=== PATIENT | male | born 1950 | race Caucasian/White ===

== ENCOUNTER 2019-03-04 02:03 | Inpatient (IN) ==
[2019-03-04] MEDS ORDERED: ENOXAPARIN 100 MG/ML SYRINGE SUBCUT STA (03:54)
[2019-03-04] MEDS ORDERED: MORPHINE 4 MG/1 ML VIAL IV PRN (04:32)
[2019-03-04] MEDS ORDERED: diphenhydrAMINE CAP 25 MG CAPSULE PO PRN (04:32)
[2019-03-04] MEDS ORDERED: ACETAMINOPHEN 325 MG TABLET PO PRN (04:32)
[2019-03-04] MEDS ORDERED: guaiFENesin/DM ER 600-30 MG TABLET PO PRN (04:32)
[2019-03-04] MEDS ORDERED: NICOTINE 21 MG/24 HR PATCH TRANSDERM PRN (04:32)
[2019-03-04] MEDS ORDERED: PROMETHAZINE 25 MG/1 ML VIAL IM PRN (04:32)
[2019-03-04] MEDS ORDERED: BISACODYL 5 MG TABLET PO PRN (04:32)
[2019-03-04 06:03] LABS: Risk Ratio 4.63; Thyroid Stimulating Hormone 1.61 uIU/ml (0.358-3.74); VLDL CHOLESTEROL 88.6 MG/DL
[2019-03-04] MEDS ORDERED: POTASSIUM CHLORIDE RIDER 10 MEQ in PREMIX 1 EACH IV PRN (09:26)
[2019-03-04] MEDS ORDERED: MAGNESIUM SULF RIDER 2 GM in PREMIX 1 EACH IV PRN (09:26)
[2019-03-04] MEDS: PANTOPRAZOLE 40 MG TABLET PO SCH (10:03)
[2019-03-04] MEDS: SODIUM CHLORIDE 0.9% 1,000 ML IV SCH ×2 (10:03→17:13)
[2019-03-04 10:29] LABS: Basophils % 0.4 % (0.0-0.8); Eosinophils # 0.2 10*3/uL (0.0-0.87); Eosinophils % 3.3 % (0.00-10.9); Hematocrit 42.7 VOL% (42.0-52.0); Hemoglobin 14.2 GM/DL (14.0-18.0); Immature Granulocytes % 0.6 %; Immature Granulocytes Absolute 0.03 #; Lymphocytes # 2.2 10*3/uL (1.4-4.0); Lymphocytes % 45.5 % (21.2-54.2); Mean Corpuscular HGB Conc 33.3 GM/DL (32-36); Mean Corpuscular Volume 96.4 FL (87-102); Monocytes % 5.3 % (1.7-12.7); Neutrophils % 44.9 % (38.7-73.9); Red Blood Count 4.43 MC/CUMM (3.8-5.5); Red Cell Distribution Width 12.4 % (9.3-17.3); White Blood Count 4.9 T/CUMM (4-12)
[2019-03-04 10:30] LABS: Osmolality,Calculated 288.3 MOS/KG (273-304)
[2019-03-04 10:40] LABS: Platelet Count 76 T/CUMM (130-400)
[2019-03-04 10:47] LABS: Platelet Estimate Decreased
[2019-03-04 10:48] LABS: Microcytosis Slight; Tear Drop Cells Slight
[2019-03-04] MEDS ORDERED: diphenhydrAMINE CAP 25 MG CAPSULE PO ONE (12:00)
[2019-03-04] MEDS ORDERED: DIAZEPAM 5 MG TABLET PO ONE (12:00)
[2019-03-04] MEDS ORDERED: LIDOCAINE 1% 20 ML VIAL ONE (12:24)
[2019-03-04] MEDS ORDERED: fentaNYL 100 MCG/2 ML VIAL ONE (12:24)
[2019-03-04] MEDS ORDERED: MIDAZOLAM 2 MG/2 ML VIAL ONE (12:24)
[2019-03-04] MEDS ORDERED: ASPIRIN 325 MG TABLET ONE (12:42)
[2019-03-04] MEDS ORDERED: ENOXAPARIN 30 MG/0.3 ML SYRINGE ONE (13:05)
[2019-03-04] MEDS ORDERED: TIROFIBAN 5,000 MCG/100 ML PREMIX IV ONE (13:07)
[2019-03-04] MEDS ORDERED: TIROFIBAN 5,000 MCG/100 ML PREMIX IV SCH ×2 (13:15)
[2019-03-04] MEDS ORDERED: TICAGRELOR 90 MG TABLET ONE (13:23)
[2019-03-04] MEDS ORDERED: GLUCAGON 1 MG VIAL IM PRN (13:34)
[2019-03-04] MEDS ORDERED: DEXTROSE 50% 25 GM/50 ML VIAL IV PRN (13:34)
[2019-03-04] MEDS ORDERED: CETIRIZINE 10 MG TABLET PO PRN (13:38)
[2019-03-04] MEDS ORDERED: NITROGLYCERIN SL 0.4 MG TABLET SL PRN (13:38)
[2019-03-04] MEDS: INSULIN REGULAR 100 UNIT/ML SUBCUT SCH ×2 (15:58→21:43)
[2019-03-04] MEDS: MEMANTINE 10 MG TABLET PO SCH (20:59)
[2019-03-04] MEDS: traZODone 50 MG TABLET PO SCH (20:59)
[2019-03-04] MEDS ORDERED: TAMSULOSIN 0.4 MG CAPSULE PO SCH (21:00)
[2019-03-04] MEDS ORDERED: INSULIN LISPRO 100 UNIT/ML SUBCUT SCH (21:00)
[2019-03-04] MEDS: PREGABALIN 75 MG CAPSULE PO SCH (21:00)
[2019-03-04] MEDS: TICAGRELOR 90 MG TABLET PO SCH (21:00)
[2019-03-04] MEDS: PANTOPRAZOLE 20 MG TABLET PO SCH (21:00)
[2019-03-05] MEDS: SODIUM CHLORIDE 0.9% 1,000 ML IV SCH ×3 (03:34→18:38)
[2019-03-05 03:37] LABS: Basophils % 0.3 % (0.0-0.8); Eosinophils # 0.2 10*3/uL (0.0-0.87); Eosinophils % 3.8 % (0.00-10.9); Hematocrit 41.5 VOL% (42.0-52.0); Immature Granulocytes % 0.3 %; Immature Granulocytes Absolute 0.01 #; Lymphocytes # 1.4 10*3/uL (1.4-4.0); Lymphocytes % 35.6 % (21.2-54.2); Mean Corpuscular HGB Conc 33.7 GM/DL (32-36); Mean Corpuscular Volume 94.5 FL (87-102); Mean Platelet Volume 11.8 FL (9.6-12.0); Monocytes % 5.8 % (1.7-12.7); Neutrophils % 54.2 % (38.7-73.9); Red Blood Count 4.39 MC/CUMM (3.8-5.5); Red Cell Distribution Width 11.9 % (9.3-17.3)
[2019-03-05 03:40] LABS: Platelet Count 71 T/CUMM (130-400)
[2019-03-05 04:02] LABS: Calcium 8.5 MG/DL (8.5-10.1); Osmolality,Calculated 293.4 MOS/KG (273-304)
[2019-03-05 04:18] LABS: Platelet Estimate Decreased
[2019-03-05] MEDS: LOSARTAN 50 MG TABLET PO SCH (08:57)
[2019-03-05] MEDS: PREGABALIN 75 MG CAPSULE PO SCH ×2 (08:57→21:39)
[2019-03-05] MEDS: TICAGRELOR 90 MG TABLET PO SCH ×2 (08:58→21:38)
[2019-03-05] MEDS: PANTOPRAZOLE 20 MG TABLET PO SCH ×2 (08:58→21:39)
[2019-03-05] MEDS: ASPIRIN EC 81 MG TABLET PO SCH (08:58)
[2019-03-05] MEDS: CYANOCOBALAMIN 500 MCG TABLET PO SCH (08:58)
[2019-03-05] MEDS: ATORVASTATIN 40 MG TABLET PO SCH (08:58)
[2019-03-05] MEDS: FERROUS SULFATE 325 MG TABLET PO SCH (08:58)
[2019-03-05] MEDS: SERTRALINE 100 MG TABLET PO SCH (08:59)
[2019-03-05] MEDS: ATENOLOL 25 MG TABLET PO SCH (08:59)
[2019-03-05] MEDS: INSULIN REGULAR 100 UNIT/ML SUBCUT SCH ×4 (08:59→21:38)
[2019-03-05] MEDS: OMEGA 3 ACID ETHYL ESTERS 1 GM CAPSULE PO SCH (08:59)
[2019-03-05] MEDS: MEMANTINE 10 MG TABLET PO SCH ×2 (08:59→21:39)
[2019-03-05] MEDS ORDERED: INSULIN LISPRO 100 UNIT/ML SUBCUT SCH (09:00)
[2019-03-05] MEDS ORDERED: FUROSEMIDE 20 MG TABLET PO SCH (09:00)
[2019-03-05] MEDS: PANTOPRAZOLE 40 MG TABLET PO SCH (09:33)
[2019-03-05] MEDS ORDERED: LOPERAMIDE 2 MG CAPSULE PO ONE (11:10)
[2019-03-05] MEDS ORDERED: LOPERAMIDE 2 MG CAPSULE PO PRN (11:10)
[2019-03-05] MEDS: traZODone 50 MG TABLET PO SCH (21:38)
[2019-03-05] MEDS: INSULIN GLARGINE 100 UNIT/ML SUBCUT SCH (21:39)
[2019-03-06] MEDS: SODIUM CHLORIDE 0.9% 1,000 ML IV SCH ×3 (05:47→18:54)
[2019-03-06] MEDS: INSULIN REGULAR 100 UNIT/ML SUBCUT SCH ×4 (09:00→21:45)
[2019-03-06] MEDS: OMEGA 3 ACID ETHYL ESTERS 1 GM CAPSULE PO SCH (09:01)
[2019-03-06] MEDS: ATENOLOL 25 MG TABLET PO SCH (09:01)
[2019-03-06] MEDS: CYANOCOBALAMIN 500 MCG TABLET PO SCH (09:01)
[2019-03-06] MEDS: FERROUS SULFATE 325 MG TABLET PO SCH (09:01)
[2019-03-06] MEDS: TICAGRELOR 90 MG TABLET PO SCH ×2 (09:01→21:25)
[2019-03-06] MEDS: LOSARTAN 50 MG TABLET PO SCH (09:01)
[2019-03-06] MEDS: MEMANTINE 10 MG TABLET PO SCH ×2 (09:01→21:26)
[2019-03-06] MEDS: PANTOPRAZOLE 20 MG TABLET PO SCH ×2 (09:02→21:27)
[2019-03-06] MEDS: ASPIRIN EC 81 MG TABLET PO SCH (09:02)
[2019-03-06] MEDS: SERTRALINE 100 MG TABLET PO SCH (09:02)
[2019-03-06] MEDS: PANTOPRAZOLE 40 MG TABLET PO SCH (09:02)
[2019-03-06] MEDS: ATORVASTATIN 40 MG TABLET PO SCH (09:02)
[2019-03-06] MEDS: PREGABALIN 75 MG CAPSULE PO SCH ×2 (09:02→21:26)
[2019-03-06] MEDS: amLODIPine 5 MG TABLET PO SCH (12:16)
[2019-03-06] MEDS: INSULIN GLARGINE 100 UNIT/ML SUBCUT SCH ×2 (13:52→21:26)
[2019-03-06] MEDS: INSULIN LISPRO 100 UNIT/ML SUBCUT SCH ×2 (15:56→21:25)
[2019-03-06] MEDS: traZODone 50 MG TABLET PO SCH (21:25)
[2019-03-07 07:14] LABS: Basophils % 0.5 % (0.0-0.8); Eosinophils # 0.2 10*3/uL (0.0-0.87); Eosinophils % 3.7 % (0.00-10.9); Hemoglobin 13.9 GM/DL (14.0-18.0); Immature Granulocytes % 0.2 %; Immature Granulocytes Absolute 0.01 #; Lymphocytes # 1.9 10*3/uL (1.4-4.0); Lymphocytes % 43.4 % (21.2-54.2); Mean Corpuscular HGB Conc 33.9 GM/DL (32-36); Mean Corpuscular Volume 94.7 FL (87-102); Mean Platelet Volume 11.6 FL (9.6-12.0); Monocytes % 5.9 % (1.7-12.7); Neutrophils % 46.3 % (38.7-73.9); Red Blood Count 4.33 MC/CUMM (3.8-5.5); Red Cell Distribution Width 11.9 % (9.3-17.3); White Blood Count 4.4 T/CUMM (4-12)
[2019-03-07 07:15] LABS: Platelet Count 72 T/CUMM (130-400)
[2019-03-07 07:24] LABS: Calcium 9.1 MG/DL (8.5-10.1); Osmolality,Calculated 294.8 MOS/KG (273-304)
[2019-03-07 07:45] LABS: Hypochromasia Slight; Platelet Estimate Decreased
[2019-03-07 07:46] LABS: Microcytosis Slight
[2019-03-07] MEDS: INSULIN REGULAR 100 UNIT/ML SUBCUT SCH ×4 (08:33→20:52)
[2019-03-07] MEDS: TICAGRELOR 90 MG TABLET PO SCH ×2 (08:34→20:51)
[2019-03-07] MEDS: OMEGA 3 ACID ETHYL ESTERS 1 GM CAPSULE PO SCH (08:34)
[2019-03-07] MEDS: ATORVASTATIN 40 MG TABLET PO SCH (08:34)
[2019-03-07] MEDS: MEMANTINE 10 MG TABLET PO SCH ×2 (08:34→20:54)
[2019-03-07] MEDS: ATENOLOL 25 MG TABLET PO SCH (08:35)
[2019-03-07] MEDS: CYANOCOBALAMIN 500 MCG TABLET PO SCH (08:35)
[2019-03-07] MEDS: SERTRALINE 100 MG TABLET PO SCH (08:35)
[2019-03-07] MEDS: PANTOPRAZOLE 20 MG TABLET PO SCH ×2 (08:36→20:54)
[2019-03-07] MEDS: FERROUS SULFATE 325 MG TABLET PO SCH (08:36)
[2019-03-07] MEDS: PANTOPRAZOLE 40 MG TABLET PO SCH (08:36)
[2019-03-07] MEDS: PREGABALIN 75 MG CAPSULE PO SCH ×2 (08:36→20:54)
[2019-03-07] MEDS: LOSARTAN 50 MG TABLET PO SCH (08:36)
[2019-03-07] MEDS: ASPIRIN EC 81 MG TABLET PO SCH (08:36)
[2019-03-07] MEDS: amLODIPine 5 MG TABLET PO SCH (08:38)
[2019-03-07] MEDS: INSULIN GLARGINE 100 UNIT/ML SUBCUT SCH (08:39)
[2019-03-07] MEDS: INSULIN LISPRO 100 UNIT/ML SUBCUT SCH ×4 (08:39→20:53)
[2019-03-07] MEDS ORDERED: DIAZEPAM 5 MG TABLET PO ONE (13:00)
[2019-03-07] MEDS ORDERED: diphenhydrAMINE CAP 50 MG CAPSULE PO ONE (13:00)
[2019-03-07] MEDS ORDERED: fentaNYL 100 MCG/2 ML VIAL ONE (13:16)
[2019-03-07] MEDS ORDERED: MIDAZOLAM 2 MG/2 ML VIAL ONE (13:16)
[2019-03-07] MEDS ORDERED: LIDOCAINE 1% 20 ML VIAL ONE (13:25)
[2019-03-07] MEDS ORDERED: ENOXAPARIN 30 MG/0.3 ML SYRINGE ONE (13:30)
[2019-03-07] MEDS ORDERED: GLUCAGON 1 MG VIAL IM PRN (14:06)
[2019-03-07] MEDS ORDERED: DEXTROSE 50% 25 GM/50 ML VIAL IV PRN (14:06)
[2019-03-07] MEDS ORDERED: SODIUM CHLORIDE 0.9% 1,000 ML IV SCH (14:30)
[2019-03-07] MEDS ORDERED: INSULIN GLARGINE 100 UNIT/ML SUBCUT SCH (16:07)
[2019-03-07] MEDS: traZODone 50 MG TABLET PO SCH (20:51)
[2019-03-08 05:54] LABS: Basophils % 0.4 % (0.0-0.8); Eosinophils # 0.2 10*3/uL (0.0-0.87); Eosinophils % 3.5 % (0.00-10.9); Hematocrit 39.8 VOL% (42.0-52.0); Immature Granulocytes % 0.4 %; Immature Granulocytes Absolute 0.02 #; Lymphocytes # 1.8 10*3/uL (1.4-4.0); Lymphocytes % 36.2 % (21.2-54.2); Mean Corpuscular HGB Conc 35.2 GM/DL (32-36); Mean Corpuscular Volume 93.4 FL (87-102); Mean Platelet Volume 11.5 FL (9.6-12.0); Monocytes % 5.9 % (1.7-12.7); Neutrophils % 53.6 % (38.7-73.9); Red Blood Count 4.26 MC/CUMM (3.8-5.5); Red Cell Distribution Width 12.1 % (9.3-17.3); White Blood Count 4.9 T/CUMM (4-12)
[2019-03-08 05:55] LABS: Platelet Count 72 T/CUMM (130-400)
[2019-03-08 06:08] LABS: Osmolality,Calculated 293.5 MOS/KG (273-304)
[2019-03-08 06:22] LABS: Microcytosis Slight; Platelet Estimate Decreased
[2019-03-08 08:07] VITALS: BP 171/79
[2019-03-08] MEDS: OMEGA 3 ACID ETHYL ESTERS 1 GM CAPSULE PO SCH (08:28)
[2019-03-08] MEDS: LOSARTAN 50 MG TABLET PO SCH (08:28)
[2019-03-08] MEDS: MEMANTINE 10 MG TABLET PO SCH (08:29)
[2019-03-08] MEDS: FERROUS SULFATE 325 MG TABLET PO SCH (08:29)
[2019-03-08] MEDS: PANTOPRAZOLE 40 MG TABLET PO SCH (08:29)
[2019-03-08] MEDS: PREGABALIN 75 MG CAPSULE PO SCH (08:29)
[2019-03-08] MEDS: PANTOPRAZOLE 20 MG TABLET PO SCH (08:30)
[2019-03-08] MEDS: ATENOLOL 25 MG TABLET PO SCH (08:30)
[2019-03-08] MEDS: TICAGRELOR 90 MG TABLET PO SCH (08:30)
[2019-03-08] MEDS: CYANOCOBALAMIN 500 MCG TABLET PO SCH (08:30)
[2019-03-08] MEDS: ATORVASTATIN 40 MG TABLET PO SCH (08:30)
[2019-03-08] MEDS: SERTRALINE 100 MG TABLET PO SCH (08:30)
[2019-03-08] MEDS: amLODIPine 5 MG TABLET PO SCH (08:30)
[2019-03-08] MEDS: ASPIRIN EC 81 MG TABLET PO SCH (08:30)
[2019-03-08] MEDS: INSULIN LISPRO 100 UNIT/ML SUBCUT SCH (09:51)
[2019-03-08] MEDS: INSULIN GLARGINE 100 UNIT/ML SUBCUT SCH (09:52)
[2019-03-08] MEDS: INSULIN REGULAR 100 UNIT/ML SUBCUT SCH (09:52)
[2019-03-08 11:01] LABS: Albumin 3.8 G/DL (3.4-5.0); Bilirubin,Direct 0.14 MG/DL (0.0-0.20); Bilirubin,Indirect 0.6 MG/DL (0.0-1.0); Bilirubin,Total 0.7 MG/DL (0.2-1.0); Total Protein 5.9 G/DL (6.4-8.3)
== END 2019-03-08 12:05 | disposition home or self-care (01) | DRG 247 ==
LOC: EDBD → EDUNIT# → N.ED 02:03 → N.EDINP 02:03 → SUATTDRO 04:25 → N.2E 05:24 → N.TELEN 13:52
PROVIDERS: ADMIT Internal Medicine; ATTEND Internal Medicine
PROC: CLDESPG (ICD-10-PCS; 2019-03-04 13:15)

== ENCOUNTER 2021-10-20 16:29 | Inpatient (IN) ==
[2021-10-20] MEDS: MIDAZOLAM 100 MG in SODIUM CHLORIDE 0.9% 80 ML IV PRN ×2 (17:04→22:48)
[2021-10-20 17:07] LABS: ABG Base Excess -4.6 MMOL/L (-2.5-2.5); ABG HCO3 20.4 MMOL/L (20-26); ABG Oxygen Saturation 83.1 % (95-100); ABG PCO2 59.2 MM HG (35-48); ABG PH 7.217 (7.35-7.45); ABG PO2 57.2 MM HG (80-95); ABG TCO2 22.4 MMOL/L (23-27)
[2021-10-20 17:45] LABS: Hematocrit 31.5 VOL% (42.0-52.0); Immature Granulocytes % 1.1 %; Immature Granulocytes Absolute 0.08 #; Lymphocytes # 0.4 10*3/uL (1.4-4.0); Lymphocytes % 4.9 % (21.2-54.2); Mean Corpuscular HGB Conc 31.7 GM/DL (32-36); Mean Corpuscular Volume 98.7 FL (87-102); Mean Platelet Volume 13.4 FL (9.6-12.0); Monocytes % 4.3 % (1.7-12.7); Neutrophils % 89.7 % (38.7-73.9); Platelet Count 72 T/CUMM (130-400); Red Blood Count 3.19 MC/CUMM (3.8-5.5); Red Cell Distribution Width 14.6 % (9.3-17.3); White Blood Count 7.2 T/CUMM (4-12)
[2021-10-20 18:14] LABS: Albumin 2.8 G/DL (3.4-5.0); Bilirubin,Total 0.8 MG/DL (0.20-1.00); Calcium 7.7 MG/DL (8.5-10.1); Osmolality,Calculated 312.4 MOS/KG (273-304); Potassium 4.3 MMOL/L (3.5-5.1); Total Protein 5.8 G/DL (6.4-8.2)
[2021-10-20] MEDS ORDERED: ALBUTEROL 2.5 MG/3 ML NEB RESP TX PRN (18:19)
[2021-10-20] MEDS ORDERED: DOCUSATE SODIUM 100 MG CAPSULE PO PRN (18:19)
[2021-10-20] MEDS ORDERED: ALUMINUM/MAGNES/SIMETH MAX STR 30 ML UDCUP PO PRN (18:19)
[2021-10-20] MEDS ORDERED: GLUCAGON 1 MG VIAL IM PRN (18:27)
[2021-10-20] MEDS ORDERED: ENOXAPARIN 40 MG/0.4 ML SYRINGE SUBCUT SCH (18:30)
[2021-10-20] MEDS ORDERED: PANTOPRAZOLE 40 MG VIAL IV SCH (18:30)
[2021-10-20] MEDS ORDERED: DEXTROSE 10% 25 GM/250 ML BAG IV PRN (18:32)
[2021-10-20 18:59] LABS: Band Neutrophils 6 % (0-10); Lymphocytes 2 % (20-55); Platelet Estimate Normal; Segmented Neutrophils 88 % (50-85); Total Cells Counted 100
[2021-10-20 19:01] LABS: Macrocytosis Slight
[2021-10-20 19:04] LABS: Ferritin 724.9 ng/mL (26-388)
[2021-10-20] MEDS: LACTATED RINGERS 1,000 ML IV SCH (19:35)
[2021-10-20] MEDS: methylPREDNISolone SOD SUC 40 MG/1 ML VIAL IV SCH (19:35)
[2021-10-20 19:44] LABS: ABG Base Excess -3.9 MMOL/L (-2.5-2.5); ABG Oxygen Saturation 85.5 % (95-100); ABG PCO2 46.8 MM HG (35-48); ABG PH 7.295 (7.35-7.45); ABG PO2 55.5 MM HG (80-95); ABG TCO2 20.9 MMOL/L (23-27)
[2021-10-20] MEDS: AZITHROMYCIN INJ 500 MG in SODIUM CHLORIDE 0.9% 250 ML IV SCH (19:50)
[2021-10-20] MEDS ORDERED: cefTRIAXone 1,000 MG VIAL IM SCH (20:00)
[2021-10-20] MEDS: FAMOTIDINE 20 MG TABLET PO SCH (20:40)
[2021-10-20] MEDS: CHOLECALCIFEROL 5,000 UNIT TABLET PO SCH (20:40)
[2021-10-20] MEDS: ASCORBIC ACID 500 MG TABLET PO SCH (20:40)
[2021-10-20] MEDS: IVERMECTIN 3 MG TABLET PO SCH (20:40)
[2021-10-20 21:14] LABS: INR 1.1; PT Patient Result 12.5 SECS (10.5-12.0)
[2021-10-20] MEDS: ENOXAPARIN 40 MG/0.4 ML SYRINGE SUBCUT SCH (21:54)
[2021-10-20] MEDS: fentaNYL INJ 1,250 MCG in SODIUM CHLORIDE 0.9% 225 ML IV PRN (22:20)
[2021-10-20] MEDS: MELATONIN 3 MG TABLET PO SCH (22:37)
[2021-10-20 23:45] LABS: ABG Base Excess -5.1 MMOL/L (-2.5-2.5); ABG Oxygen Saturation 87.5 % (95-100); ABG PCO2 47.6 MM HG (35-48); ABG PO2 59.7 MM HG (80-95); ABG TCO2 20.3 MMOL/L (23-27); Allen Test Positive; Pt O2 Delivery Device Ventilator
[2021-10-21 01:28] LABS: Hematocrit 29.3 VOL% (42.0-52.0); Hemoglobin 9.3 GM/DL (14.0-18.0); Immature Granulocytes % 1.3 %; Immature Granulocytes Absolute 0.07 #; Lymphocytes # 0.4 10*3/uL (1.4-4.0); Lymphocytes % 8.4 % (21.2-54.2); Mean Corpuscular HGB Conc 31.7 GM/DL (32-36); Mean Corpuscular Volume 99.7 FL (87-102); Mean Platelet Volume 13.8 FL (9.6-12.0); Neutrophils % 86.3 % (38.7-73.9); Platelet Count 72 T/CUMM (130-400); Red Blood Count 2.94 MC/CUMM (3.8-5.5); Red Cell Distribution Width 14.9 % (9.3-17.3); White Blood Count 5.2 T/CUMM (4-12)
[2021-10-21] MEDS: INSULIN LISPRO 100 UNIT/ML SUBCUT SCH ×4 (01:36→18:04)
[2021-10-21] MEDS: methylPREDNISolone SOD SUC 40 MG/1 ML VIAL IV SCH ×4 (01:37→18:03)
[2021-10-21 01:46] LABS: Ferritin 692.1 ng/mL (26-388)
[2021-10-21 02:26] LABS: Albumin 2.6 G/DL (3.4-5.0); Bilirubin,Total 0.6 MG/DL (0.20-1.00); Calcium 7.7 MG/DL (8.5-10.1); Osmolality,Calculated 318.7 MOS/KG (273-304); Potassium 4.7 MMOL/L (3.5-5.1); Risk Ratio 3.65; Total Protein 5.5 G/DL (6.4-8.2); VLDL Cholesterol 29.2 MG/DL
[2021-10-21 03:59] LABS: ABG Base Excess -4.6 MMOL/L (-2.5-2.5); ABG HCO3 20.6 MMOL/L (20-26); ABG Oxygen Saturation 96.4 % (95-100); ABG PCO2 40.3 MM HG (35-48); ABG PH 7.327 (7.35-7.45); ABG PO2 81.8 MM HG (80-95); ABG TCO2 19.4 MMOL/L (23-27); Allen Test Positive; Pt O2 Delivery Device Ventilator
[2021-10-21] MEDS: LACTATED RINGERS 1,000 ML IV SCH ×3 (04:30→16:18)
[2021-10-21] MEDS: PHENYLEPHRINE DRIP 40 MG/250 ML PREMIX IV PRN ×3 (05:15→18:28)
[2021-10-21] MEDS: ZINC GLUCONATE 50 MG TABLET PO SCH (08:53)
[2021-10-21] MEDS: ENOXAPARIN 40 MG/0.4 ML SYRINGE SUBCUT SCH ×2 (08:53→21:36)
[2021-10-21] MEDS: IVERMECTIN 3 MG TABLET PO SCH (08:54)
[2021-10-21] MEDS: CHOLECALCIFEROL 5,000 UNIT TABLET PO SCH ×2 (08:54→21:38)
[2021-10-21] MEDS: ASCORBIC ACID 500 MG TABLET PO SCH ×2 (08:54→21:38)
[2021-10-21] MEDS: FAMOTIDINE 20 MG TABLET PO SCH ×2 (08:54→21:37)
[2021-10-21] MEDS: CETIRIZINE 10 MG TABLET PO SCH (08:55)
[2021-10-21] MEDS ORDERED: CHOLECALCIFEROL 5,000 UNIT TABLET PO SCH (09:00)
[2021-10-21] MEDS ORDERED: IVERMECTIN 3 MG TABLET PO SCH (09:00)
[2021-10-21] MEDS ORDERED: INSULIN GLARGINE 100 UNIT/ML SUBCUT SCH (10:50)
[2021-10-21] MEDS: BARICITINIB 2 MG TABLET PO SCH (14:07)
[2021-10-21] MEDS: fentaNYL INJ 1,250 MCG in SODIUM CHLORIDE 0.9% 225 ML IV PRN (19:20)
[2021-10-21] MEDS: cefTRIAXone 1,000 MG in SODIUM CHLORIDE 0.9% 100 ML IV SCH (21:37)
[2021-10-21] MEDS: AZITHROMYCIN INJ 500 MG in SODIUM CHLORIDE 0.9% 250 ML IV SCH (21:37)
[2021-10-21] MEDS: MELATONIN 3 MG TABLET PO SCH (21:38)
[2021-10-21] MEDS: MEMANTINE 10 MG TABLET PO SCH (21:38)
[2021-10-21] MEDS: PREGABALIN 75 MG CAPSULE PO SCH (21:38)
[2021-10-21] MEDS: MIDAZOLAM 100 MG in SODIUM CHLORIDE 0.9% 80 ML IV PRN (22:11)
[2021-10-22] MEDS: methylPREDNISolone SOD SUC 40 MG/1 ML VIAL IV SCH ×4 (00:01→17:56)
[2021-10-22] MEDS: INSULIN LISPRO 100 UNIT/ML SUBCUT SCH ×4 (00:03→17:53)
[2021-10-22] MEDS: PHENYLEPHRINE DRIP 40 MG/250 ML PREMIX IV PRN ×3 (01:07→20:43)
[2021-10-22 03:44] LABS: ABG Base Excess -4.2 MMOL/L (-2.5-2.5); ABG HCO3 21.1 MMOL/L (20-26); ABG PCO2 39.4 MM HG (35-48); ABG PH 7.346 (7.35-7.45); ABG PO2 155.7 MM HG (80-95); ABG TCO2 22.3 MMOL/L (23-27)
[2021-10-22] MEDS: LACTATED RINGERS 1,000 ML IV SCH ×2 (06:03→15:25)
[2021-10-22 06:31] LABS: Basophils % 0.1 % (0.0-0.8); Hematocrit 32.5 VOL% (42.0-52.0); Hemoglobin 10.6 GM/DL (14.0-18.0); Immature Granulocytes % 1.3 %; Immature Granulocytes Absolute 0.17 #; Lymphocytes # 0.8 10*3/uL (1.4-4.0); Lymphocytes % 6.2 % (21.2-54.2); Mean Corpuscular HGB Conc 32.6 GM/DL (32-36); Mean Platelet Volume 12.5 FL (9.6-12.0); Monocytes % 4.8 % (1.7-12.7); NRBC # 0.03 10*3/uL; Neutrophils % 87.6 % (38.7-73.9); Platelet Count 119 T/CUMM (130-400); Red Blood Count 3.35 MC/CUMM (3.8-5.5); Red Cell Distribution Width 15.9 % (9.3-17.3)
[2021-10-22 06:46] LABS: Calcium 8.1 MG/DL (8.5-10.1); Osmolality,Calculated 321.4 MOS/KG (273-304); Potassium 4.3 MMOL/L (3.5-5.1)
[2021-10-22] MEDS: MIDAZOLAM 100 MG in SODIUM CHLORIDE 0.9% 80 ML IV PRN ×2 (07:44→15:25)
[2021-10-22] MEDS ORDERED: IVERMECTIN 3 MG TABLET PO ONE (09:00)
[2021-10-22] MEDS ORDERED: IVERMECTIN 3 MG TABLET PO SCH (09:00)
[2021-10-22] MEDS: FERROUS SULFATE 325 MG TABLET PO SCH (09:50)
[2021-10-22] MEDS: SERTRALINE 100 MG TABLET PO SCH (09:50)
[2021-10-22] MEDS: POLYETHYLENE GLYCOL POWDER 17 GM PACK PO SCH (09:50)
[2021-10-22] MEDS: ENOXAPARIN 40 MG/0.4 ML SYRINGE SUBCUT SCH ×2 (09:50→21:12)
[2021-10-22] MEDS: INSULIN GLARGINE 100 UNIT/ML SUBCUT SCH (09:50)
[2021-10-22] MEDS: ZINC GLUCONATE 50 MG TABLET PO SCH (09:51)
[2021-10-22] MEDS: BARICITINIB 2 MG TABLET PO SCH (09:51)
[2021-10-22] MEDS: OMEGA 3 ACID ETHYL ESTERS 1 GM CAPSULE PO SCH (09:51)
[2021-10-22] MEDS: MEMANTINE 10 MG TABLET PO SCH ×2 (09:51→20:06)
[2021-10-22] MEDS: PREGABALIN 75 MG CAPSULE PO SCH ×2 (09:52→20:06)
[2021-10-22] MEDS: ATORVASTATIN 40 MG TABLET PO SCH (09:52)
[2021-10-22] MEDS: ASCORBIC ACID 500 MG TABLET PO SCH ×2 (09:52→20:06)
[2021-10-22] MEDS: ASPIRIN EC 81 MG TABLET PO SCH (09:52)
[2021-10-22] MEDS: FAMOTIDINE 20 MG TABLET PO SCH ×2 (09:52→20:06)
[2021-10-22] MEDS: CHOLECALCIFEROL 5,000 UNIT TABLET PO SCH ×2 (09:53→20:06)
[2021-10-22] MEDS: CETIRIZINE 10 MG TABLET PO SCH (10:01)
[2021-10-22] MEDS: IVERMECTIN 3 MG TABLET PO SCH (14:20)
[2021-10-22] MEDS: AZITHROMYCIN INJ 500 MG in SODIUM CHLORIDE 0.9% 250 ML IV SCH (20:05)
[2021-10-22] MEDS: MELATONIN 3 MG TABLET PO SCH (20:06)
[2021-10-22] MEDS: fentaNYL INJ 1,250 MCG in SODIUM CHLORIDE 0.9% 225 ML IV PRN (20:39)
[2021-10-22] MEDS: cefTRIAXone 1,000 MG in SODIUM CHLORIDE 0.9% 100 ML IV SCH (21:11)
[2021-10-23] MEDS: methylPREDNISolone SOD SUC 40 MG/1 ML VIAL IV SCH ×4 (00:34→17:41)
[2021-10-23] MEDS: INSULIN LISPRO 100 UNIT/ML SUBCUT SCH ×4 (00:35→17:41)
[2021-10-23] MEDS: LACTATED RINGERS 1,000 ML IV SCH ×3 (01:00→14:08)
[2021-10-23 05:05] LABS: ABG HCO3 20.3 MMOL/L (20-26); ABG Oxygen Saturation 99.5 % (95-100); ABG PCO2 48.5 MM HG (35-48); ABG PH 7.268 (7.35-7.45); ABG TCO2 20.3 MMOL/L (23-27)
[2021-10-23 05:54] LABS: Hematocrit 29.8 VOL% (42.0-52.0); Hemoglobin 9.3 GM/DL (14.0-18.0); Immature Granulocytes % 1.3 %; Immature Granulocytes Absolute 0.07 #; Lymphocytes # 0.5 10*3/uL (1.4-4.0); Lymphocytes % 10.1 % (21.2-54.2); Mean Corpuscular HGB Conc 31.2 GM/DL (32-36); Mean Corpuscular Volume 100.7 FL (87-102); Mean Platelet Volume 12.3 FL (9.6-12.0); Neutrophils % 83.6 % (38.7-73.9); Platelet Count 100 T/CUMM (130-400); Red Blood Count 2.96 MC/CUMM (3.8-5.5); Red Cell Distribution Width 15.6 % (9.3-17.3); White Blood Count 5.3 T/CUMM (4-12)
[2021-10-23 06:18] LABS: Calcium 7.8 MG/DL (8.5-10.1); Ferritin 675.2 ng/mL (26-388); Osmolality,Calculated 326.1 MOS/KG (273-304); Potassium 4.3 MMOL/L (3.5-5.1)
[2021-10-23] MEDS: MIDAZOLAM 100 MG in SODIUM CHLORIDE 0.9% 80 ML IV PRN ×2 (08:30→16:49)
[2021-10-23] MEDS: fentaNYL INJ 1,250 MCG in SODIUM CHLORIDE 0.9% 225 ML IV PRN ×2 (08:56→22:30)
[2021-10-23] MEDS: INSULIN GLARGINE 100 UNIT/ML SUBCUT SCH (09:50)
[2021-10-23] MEDS: ENOXAPARIN 40 MG/0.4 ML SYRINGE SUBCUT SCH ×2 (09:50→20:49)
[2021-10-23] MEDS: FAMOTIDINE 20 MG TABLET PO SCH ×2 (09:54→20:49)
[2021-10-23] MEDS: ATORVASTATIN 40 MG TABLET PO SCH (09:54)
[2021-10-23] MEDS: SERTRALINE 100 MG TABLET PO SCH (09:54)
[2021-10-23] MEDS: ASPIRIN EC 81 MG TABLET PO SCH (09:54)
[2021-10-23] MEDS: FERROUS SULFATE 325 MG TABLET PO SCH (09:55)
[2021-10-23] MEDS: BARICITINIB 2 MG TABLET PO SCH (09:55)
[2021-10-23] MEDS: PREGABALIN 75 MG CAPSULE PO SCH ×2 (09:55→20:49)
[2021-10-23] MEDS: ZINC GLUCONATE 50 MG TABLET PO SCH (09:55)
[2021-10-23] MEDS: CHOLECALCIFEROL 5,000 UNIT TABLET PO SCH ×2 (09:56→20:49)
[2021-10-23] MEDS: OMEGA 3 ACID ETHYL ESTERS 1 GM CAPSULE PO SCH (09:56)
[2021-10-23] MEDS: ASCORBIC ACID 500 MG TABLET PO SCH ×2 (09:56→20:49)
[2021-10-23] MEDS: CETIRIZINE 10 MG TABLET PO SCH (09:57)
[2021-10-23] MEDS: IVERMECTIN 3 MG TABLET PO SCH (09:57)
[2021-10-23] MEDS: POLYETHYLENE GLYCOL POWDER 17 GM PACK PO SCH (10:00)
[2021-10-23] MEDS: MEMANTINE 10 MG TABLET PO SCH ×2 (10:06→20:49)
[2021-10-23] MEDS: metroNIDAZOLE 500 MG TABLET PO SCH ×2 (13:29→20:49)
[2021-10-23] MEDS: MELATONIN 3 MG TABLET PO SCH (20:49)
[2021-10-24] MEDS: LACTATED RINGERS 1,000 ML IV SCH ×2 (00:25→09:41)
[2021-10-24] MEDS: methylPREDNISolone SOD SUC 40 MG/1 ML VIAL IV SCH ×4 (00:45→17:51)
[2021-10-24] MEDS: INSULIN LISPRO 100 UNIT/ML SUBCUT SCH ×4 (00:45→17:50)
[2021-10-24 02:37] LABS: ABG Base Excess -4.3 MMOL/L (-2.5-2.5); ABG HCO3 20.8 MMOL/L (20-26); ABG Oxygen Saturation 99.1 % (95-100); ABG PCO2 45.5 MM HG (35-48); ABG PH 7.295 (7.35-7.45); ABG TCO2 20.5 MMOL/L (23-27)
[2021-10-24 06:36] LABS: Hematocrit 30.1 VOL% (42.0-52.0); Hemoglobin 9.4 GM/DL (14.0-18.0); Immature Granulocytes % 1.7 %; Immature Granulocytes Absolute 0.07 #; Lymphocytes # 0.4 10*3/uL (1.4-4.0); Mean Corpuscular HGB Conc 31.2 GM/DL (32-36); Mean Platelet Volume 12.6 FL (9.6-12.0); Monocytes % 5.5 % (1.7-12.7); Neutrophils % 82.8 % (38.7-73.9); Platelet Count 101 T/CUMM (130-400); Red Blood Count 2.98 MC/CUMM (3.8-5.5); Red Cell Distribution Width 15.1 % (9.3-17.3); White Blood Count 4.2 T/CUMM (4-12)
[2021-10-24 07:03] LABS: Calcium 7.8 MG/DL (8.5-10.1); Osmolality,Calculated 334.7 MOS/KG (273-304); Potassium 4.2 MMOL/L (3.5-5.1)
[2021-10-24] MEDS: MIDAZOLAM 100 MG in SODIUM CHLORIDE 0.9% 80 ML IV PRN ×2 (07:12→21:00)
[2021-10-24] MEDS: ENOXAPARIN 40 MG/0.4 ML SYRINGE SUBCUT SCH ×2 (09:30→20:52)
[2021-10-24] MEDS: INSULIN GLARGINE 100 UNIT/ML SUBCUT SCH (09:30)
[2021-10-24] MEDS: OMEGA 3 ACID ETHYL ESTERS 1 GM CAPSULE PO SCH (09:30)
[2021-10-24] MEDS: BARICITINIB 2 MG TABLET PO SCH (09:31)
[2021-10-24] MEDS: FAMOTIDINE 20 MG TABLET PO SCH ×2 (09:31→20:52)
[2021-10-24] MEDS: ZINC GLUCONATE 50 MG TABLET PO SCH (09:31)
[2021-10-24] MEDS: SERTRALINE 100 MG TABLET PO SCH (09:31)
[2021-10-24] MEDS: FERROUS SULFATE 325 MG TABLET PO SCH (09:31)
[2021-10-24] MEDS: PREGABALIN 75 MG CAPSULE PO SCH ×2 (09:31→20:52)
[2021-10-24] MEDS: ASPIRIN EC 81 MG TABLET PO SCH (09:32)
[2021-10-24] MEDS: ASCORBIC ACID 500 MG TABLET PO SCH ×2 (09:32→20:53)
[2021-10-24] MEDS: CHOLECALCIFEROL 5,000 UNIT TABLET PO SCH ×2 (09:32→21:45)
[2021-10-24] MEDS: metroNIDAZOLE 500 MG TABLET PO SCH ×2 (09:32→20:53)
[2021-10-24] MEDS: MEMANTINE 10 MG TABLET PO SCH ×2 (09:32→21:44)
[2021-10-24] MEDS: CETIRIZINE 10 MG TABLET PO SCH (09:32)
[2021-10-24] MEDS: ATORVASTATIN 40 MG TABLET PO SCH (09:32)
[2021-10-24] MEDS: POLYETHYLENE GLYCOL POWDER 17 GM PACK PO SCH (09:33)
[2021-10-24] MEDS: DEXTROSE 5% 1,000 ML IV SCH ×2 (13:45→23:52)
[2021-10-24] MEDS: CHOLESTYRAMINE 4 GM PACK PO SCH (14:31)
[2021-10-24] MEDS: fentaNYL INJ 1,250 MCG in SODIUM CHLORIDE 0.9% 225 ML IV PRN (17:23)
[2021-10-24] MEDS: MELATONIN 3 MG TABLET PO SCH (20:53)
[2021-10-25] MEDS: INSULIN LISPRO 100 UNIT/ML SUBCUT SCH ×4 (01:59→18:42)
[2021-10-25] MEDS: methylPREDNISolone SOD SUC 40 MG/1 ML VIAL IV SCH ×4 (01:59→18:42)
[2021-10-25] MEDS: ACETAMINOPHEN 325 MG TABLET PO PRN (02:24)
[2021-10-25 04:02] LABS: Hematocrit 31.1 VOL% (42.0-52.0); Hemoglobin 9.6 GM/DL (14.0-18.0); Immature Granulocytes % 2.6 %; Immature Granulocytes Absolute 0.08 #; Lymphocytes # 0.3 10*3/uL (1.4-4.0); Lymphocytes % 9.4 % (21.2-54.2); Mean Corpuscular HGB Conc 30.9 GM/DL (32-36); Mean Corpuscular Volume 100.3 FL (87-102); Mean Platelet Volume 12.6 FL (9.6-12.0); Monocytes % 4.2 % (1.7-12.7); Neutrophils % 83.8 % (38.7-73.9); Platelet Count 104 T/CUMM (130-400); Red Cell Distribution Width 14.6 % (9.3-17.3); White Blood Count 3.1 T/CUMM (4-12)
[2021-10-25] MEDS ORDERED: MORPHINE 2 MG/1 ML SYRINGE IV PRN (04:03)
[2021-10-25 04:15] LABS: Calcium 7.8 MG/DL (8.5-10.1); Osmolality,Calculated 330.7 MOS/KG (273-304); Potassium 4.1 MMOL/L (3.5-5.1)
[2021-10-25 04:29] LABS: ABG Base Excess -4.7 MMOL/L (-2.5-2.5); ABG Oxygen Saturation 97.7 % (95-100); ABG PH 7.327 (7.35-7.45); ABG PO2 130.7 MM HG (80-95); ABG TCO2 22.2 MMOL/L (23-27); Allen Test Positive; Pt O2 Delivery Device Ventilator
[2021-10-25] MEDS: fentaNYL INJ 1,250 MCG in SODIUM CHLORIDE 0.9% 225 ML IV PRN (06:33)
[2021-10-25] MEDS: MIDAZOLAM 100 MG in SODIUM CHLORIDE 0.9% 80 ML IV PRN (07:29)
[2021-10-25] MEDS: POLYETHYLENE GLYCOL POWDER 17 GM PACK PO SCH (08:41)
[2021-10-25] MEDS: ATORVASTATIN 40 MG TABLET PO SCH (08:42)
[2021-10-25] MEDS: OMEGA 3 ACID ETHYL ESTERS 1 GM CAPSULE PO SCH (08:42)
[2021-10-25] MEDS: CHOLECALCIFEROL 5,000 UNIT TABLET PO SCH ×2 (08:42→20:37)
[2021-10-25] MEDS: ASCORBIC ACID 500 MG TABLET PO SCH ×2 (08:42→20:37)
[2021-10-25] MEDS: ASPIRIN EC 81 MG TABLET PO SCH (08:42)
[2021-10-25] MEDS: BARICITINIB 2 MG TABLET PO SCH (08:42)
[2021-10-25] MEDS: PREGABALIN 75 MG CAPSULE PO SCH ×2 (08:42→20:37)
[2021-10-25] MEDS: FAMOTIDINE 20 MG TABLET PO SCH ×2 (08:42→20:37)
[2021-10-25] MEDS: SERTRALINE 100 MG TABLET PO SCH (08:42)
[2021-10-25] MEDS: INSULIN GLARGINE 100 UNIT/ML SUBCUT SCH ×2 (08:43→13:11)
[2021-10-25] MEDS: FERROUS SULFATE 325 MG TABLET PO SCH (08:43)
[2021-10-25] MEDS: ENOXAPARIN 40 MG/0.4 ML SYRINGE SUBCUT SCH ×2 (08:43→20:36)
[2021-10-25] MEDS: ZINC GLUCONATE 50 MG TABLET PO SCH (08:43)
[2021-10-25] MEDS: CETIRIZINE 10 MG TABLET PO SCH (08:44)
[2021-10-25] MEDS: metroNIDAZOLE 500 MG TABLET PO SCH ×2 (08:44→20:37)
[2021-10-25] MEDS: MEMANTINE 10 MG TABLET PO SCH ×2 (08:46→20:37)
[2021-10-25] MEDS: CHOLESTYRAMINE 4 GM PACK PO SCH (09:49)
[2021-10-25] MEDS: DEXTROSE 5% 1,000 ML IV SCH (09:54)
[2021-10-25] MEDS: MELATONIN 3 MG TABLET PO SCH (20:38)
[2021-10-26] MEDS: INSULIN LISPRO 100 UNIT/ML SUBCUT SCH ×4 (00:10→18:37)
[2021-10-26] MEDS: DOCUSATE SODIUM 100 MG/10 ML UDCUP PO PRN (00:11)
[2021-10-26] MEDS: methylPREDNISolone SOD SUC 40 MG/1 ML VIAL IV SCH ×4 (01:44→20:20)
[2021-10-26] MEDS: fentaNYL INJ 1,250 MCG in SODIUM CHLORIDE 0.9% 225 ML IV PRN ×2 (02:52→16:30)
[2021-10-26 04:31] LABS: Calcium 8.1 MG/DL (8.5-10.1); Osmolality,Calculated 318.6 MOS/KG (273-304); Potassium 3.9 MMOL/L (3.5-5.1)
[2021-10-26 04:41] LABS: Eosinophils % 0.3 % (0.00-10.9); Hematocrit 30.4 VOL% (42.0-52.0); Hemoglobin 9.7 GM/DL (14.0-18.0); Immature Granulocytes % 1.5 %; Immature Granulocytes Absolute 0.06 #; Lymphocytes # 0.3 10*3/uL (1.4-4.0); Lymphocytes % 8.2 % (21.2-54.2); Mean Corpuscular HGB Conc 31.9 GM/DL (32-36); Mean Corpuscular Volume 98.4 FL (87-102); Mean Platelet Volume 12.6 FL (9.6-12.0); Monocytes % 8.2 % (1.7-12.7); NRBC # 0.02 10*3/uL; Neutrophils % 81.8 % (38.7-73.9); Platelet Count 101 T/CUMM (130-400); Red Blood Count 3.09 MC/CUMM (3.8-5.5); White Blood Count 3.9 T/CUMM (4-12)
[2021-10-26 04:43] LABS: ABG Base Excess -2.6 MMOL/L (-2.5-2.5); ABG HCO3 22.2 MMOL/L (20-26); ABG Oxygen Saturation 97.7 % (95-100); ABG PCO2 42.5 MM HG (35-48); ABG PH 7.342 (7.35-7.45); ABG TCO2 21.1 MMOL/L (23-27)
[2021-10-26] MEDS: DEXTROSE 5% 1,000 ML IV SCH ×2 (06:09→22:24)
[2021-10-26] MEDS: ENOXAPARIN 40 MG/0.4 ML SYRINGE SUBCUT SCH ×2 (08:51→20:12)
[2021-10-26] MEDS: POLYETHYLENE GLYCOL POWDER 17 GM PACK PO SCH (08:51)
[2021-10-26] MEDS: metroNIDAZOLE 500 MG TABLET PO SCH ×2 (08:51→20:15)
[2021-10-26] MEDS: INSULIN GLARGINE 100 UNIT/ML SUBCUT SCH (08:51)
[2021-10-26] MEDS: PREGABALIN 75 MG CAPSULE PO SCH ×2 (08:52→20:15)
[2021-10-26] MEDS: OMEGA 3 ACID ETHYL ESTERS 1 GM CAPSULE PO SCH (08:52)
[2021-10-26] MEDS: SERTRALINE 100 MG TABLET PO SCH (08:52)
[2021-10-26] MEDS: FAMOTIDINE 20 MG TABLET PO SCH ×2 (08:52→20:14)
[2021-10-26] MEDS: ATORVASTATIN 40 MG TABLET PO SCH (08:52)
[2021-10-26] MEDS: ASPIRIN EC 81 MG TABLET PO SCH (08:52)
[2021-10-26] MEDS: FERROUS SULFATE 325 MG TABLET PO SCH (08:52)
[2021-10-26] MEDS: ZINC GLUCONATE 50 MG TABLET PO SCH (08:52)
[2021-10-26] MEDS: ASCORBIC ACID 500 MG TABLET PO SCH ×2 (08:53→20:13)
[2021-10-26] MEDS: CETIRIZINE 10 MG TABLET PO SCH (08:53)
[2021-10-26] MEDS: BARICITINIB 2 MG TABLET PO SCH (08:53)
[2021-10-26] MEDS: CHOLECALCIFEROL 5,000 UNIT TABLET PO SCH ×2 (08:53→20:18)
[2021-10-26] MEDS: MEMANTINE 10 MG TABLET PO SCH ×2 (08:56→20:17)
[2021-10-26] MEDS: MIDAZOLAM 100 MG in SODIUM CHLORIDE 0.9% 80 ML IV PRN ×2 (09:31→22:24)
[2021-10-26] MEDS: hydrALAZINE 20 MG/1 ML VIAL IV PRN (11:11)
[2021-10-26] MEDS: MELATONIN 3 MG TABLET PO SCH (20:13)
[2021-10-27] MEDS: INSULIN LISPRO 100 UNIT/ML SUBCUT SCH ×4 (00:09→18:22)
[2021-10-27] MEDS: DEXTROSE 5% 1,000 ML IV SCH ×2 (01:41→18:44)
[2021-10-27 04:32] LABS: Hematocrit 29.4 VOL% (42.0-52.0); Hemoglobin 9.5 GM/DL (14.0-18.0); Immature Granulocytes % 3.4 %; Immature Granulocytes Absolute 0.11 #; Lymphocytes # 0.3 10*3/uL (1.4-4.0); Lymphocytes % 8.5 % (21.2-54.2); Mean Corpuscular HGB Conc 32.3 GM/DL (32-36); Mean Corpuscular Volume 97.4 FL (87-102); Monocytes % 4.9 % (1.7-12.7); Neutrophils % 83.2 % (38.7-73.9); Platelet Count 100 T/CUMM (130-400); Red Blood Count 3.02 MC/CUMM (3.8-5.5); White Blood Count 3.3 T/CUMM (4-12)
[2021-10-27 04:38] LABS: Calcium 8.1 MG/DL (8.5-10.1); Osmolality,Calculated 316.7 MOS/KG (273-304); Potassium 4.3 MMOL/L (3.5-5.1)
[2021-10-27] MEDS: fentaNYL INJ 1,250 MCG in SODIUM CHLORIDE 0.9% 225 ML IV PRN (04:39)
[2021-10-27 05:03] LABS: ABG Base Excess -2.2 MMOL/L (-2.5-2.5); ABG HCO3 22.6 MMOL/L (20-26); ABG Oxygen Saturation 98.2 % (95-100); ABG PCO2 39.7 MM HG (35-48); ABG PH 7.368 (7.35-7.45); ABG TCO2 20.9 MMOL/L (23-27)
[2021-10-27] MEDS: methylPREDNISolone SOD SUC 40 MG/1 ML VIAL IV SCH ×2 (08:40→20:59)
[2021-10-27] MEDS: INSULIN GLARGINE 100 UNIT/ML SUBCUT SCH (08:40)
[2021-10-27] MEDS: FAMOTIDINE 20 MG TABLET PO SCH ×2 (08:41→21:00)
[2021-10-27] MEDS: CETIRIZINE 10 MG TABLET PO SCH (08:41)
[2021-10-27] MEDS: ATORVASTATIN 40 MG TABLET PO SCH (08:41)
[2021-10-27] MEDS: ZINC GLUCONATE 50 MG TABLET PO SCH (08:41)
[2021-10-27] MEDS: PREGABALIN 75 MG CAPSULE PO SCH ×2 (08:41→20:59)
[2021-10-27] MEDS: ENOXAPARIN 40 MG/0.4 ML SYRINGE SUBCUT SCH ×2 (08:41→20:59)
[2021-10-27] MEDS: FERROUS SULFATE 325 MG TABLET PO SCH (08:42)
[2021-10-27] MEDS: ASPIRIN EC 81 MG TABLET PO SCH (08:42)
[2021-10-27] MEDS: SERTRALINE 100 MG TABLET PO SCH (08:42)
[2021-10-27] MEDS: metroNIDAZOLE 500 MG TABLET PO SCH ×2 (08:42→21:00)
[2021-10-27] MEDS: ASCORBIC ACID 500 MG TABLET PO SCH ×2 (08:42→21:00)
[2021-10-27] MEDS: OMEGA 3 ACID ETHYL ESTERS 1 GM CAPSULE PO SCH (08:42)
[2021-10-27] MEDS: POLYETHYLENE GLYCOL POWDER 17 GM PACK PO SCH (08:42)
[2021-10-27] MEDS: CHOLECALCIFEROL 5,000 UNIT TABLET PO SCH ×2 (08:42→21:00)
[2021-10-27] MEDS: MEMANTINE 10 MG TABLET PO SCH ×2 (08:43→21:00)
[2021-10-27] MEDS: hydrALAZINE 20 MG/1 ML VIAL IV PRN (10:37)
[2021-10-27] MEDS: MIDAZOLAM 100 MG in SODIUM CHLORIDE 0.9% 80 ML IV PRN (12:35)
[2021-10-27] MEDS: amLODIPine 5 MG TABLET PO SCH (14:33)
[2021-10-27] MEDS: LOSARTAN 50 MG TABLET PO SCH (14:33)
[2021-10-27] MEDS: MELATONIN 3 MG TABLET PO SCH (21:00)
[2021-10-28] MEDS: INSULIN LISPRO 100 UNIT/ML SUBCUT SCH ×4 (00:31→17:48)
[2021-10-28] MEDS: fentaNYL INJ 1,250 MCG in SODIUM CHLORIDE 0.9% 225 ML IV PRN ×2 (01:01→17:28)
[2021-10-28 04:28] LABS: ABG Base Excess -3.1 MMOL/L (-2.5-2.5); ABG HCO3 21.9 MMOL/L (20-26); ABG PCO2 38.9 MM HG (35-48); ABG PH 7.369 (7.35-7.45); ABG PO2 52.7 MM HG (80-95); ABG TCO2 23.1 MMOL/L (23-27)
[2021-10-28 04:48] LABS: Basophils % 0.2 % (0.0-0.8); Hematocrit 26.7 VOL% (42.0-52.0); Hemoglobin 8.8 GM/DL (14.0-18.0); Immature Granulocytes % 2.3 %; Immature Granulocytes Absolute 0.15 #; Lymphocytes # 0.2 10*3/uL (1.4-4.0); Lymphocytes % 2.9 % (21.2-54.2); Mean Corpuscular Volume 97.1 FL (87-102); Mean Platelet Volume 12.4 FL (9.6-12.0); Monocytes % 4.5 % (1.7-12.7); Neutrophils % 90.1 % (38.7-73.9); Red Blood Count 2.75 MC/CUMM (3.8-5.5); Red Cell Distribution Width 13.8 % (9.3-17.3)
[2021-10-28 04:52] LABS: Calcium 7.9 MG/DL (8.5-10.1); Osmolality,Calculated 318.7 MOS/KG (273-304); Platelet Count 90 T/CUMM (130-400); Potassium 4.6 MMOL/L (3.5-5.1); White Blood Count 6.5 T/CUMM (4-12)
[2021-10-28 05:05] LABS: Hypochromia 1+; Lymphocytes 2 % (20-55); Microcytosis 1+; Platelet Estimate Decreased; Segmented Neutrophils 95 % (50-85); Total Cells Counted 100
[2021-10-28] MEDS: OMEGA 3 ACID ETHYL ESTERS 1 GM CAPSULE PO SCH (08:21)
[2021-10-28] MEDS: INSULIN GLARGINE 100 UNIT/ML SUBCUT SCH (08:21)
[2021-10-28] MEDS: ENOXAPARIN 40 MG/0.4 ML SYRINGE SUBCUT SCH ×2 (08:21→21:29)
[2021-10-28] MEDS: PREGABALIN 75 MG CAPSULE PO SCH ×2 (08:22→20:07)
[2021-10-28] MEDS: ATORVASTATIN 40 MG TABLET PO SCH (08:23)
[2021-10-28] MEDS: ZINC GLUCONATE 50 MG TABLET PO SCH (08:23)
[2021-10-28] MEDS: FAMOTIDINE 20 MG TABLET PO SCH ×2 (08:24→20:07)
[2021-10-28] MEDS: LOSARTAN 50 MG TABLET PO SCH (08:24)
[2021-10-28] MEDS: ASPIRIN CHEW 81 MG TABLET PO SCH (08:24)
[2021-10-28] MEDS: CHOLECALCIFEROL 5,000 UNIT TABLET PO SCH ×2 (08:24→20:07)
[2021-10-28] MEDS: metroNIDAZOLE 500 MG TABLET PO SCH (08:24)
[2021-10-28] MEDS: SERTRALINE 100 MG TABLET PO SCH (08:24)
[2021-10-28] MEDS: ASCORBIC ACID 500 MG TABLET PO SCH ×2 (08:24→20:07)
[2021-10-28] MEDS: amLODIPine 5 MG TABLET PO SCH (08:24)
[2021-10-28] MEDS: FERROUS SULFATE 325 MG TABLET PO SCH (08:24)
[2021-10-28] MEDS: CETIRIZINE 10 MG TABLET PO SCH (08:24)
[2021-10-28] MEDS: POLYETHYLENE GLYCOL POWDER 17 GM PACK PO SCH (08:25)
[2021-10-28] MEDS: methylPREDNISolone SOD SUC 40 MG/1 ML VIAL IV SCH ×2 (08:25→21:28)
[2021-10-28] MEDS: MEMANTINE 10 MG TABLET PO SCH ×2 (08:27→20:07)
[2021-10-28] MEDS ORDERED: DEXMEDETOMIDINE 200 MCG in SODIUM CHLORIDE 0.9% 48 ML IV PRN (08:51)
[2021-10-28] MEDS ORDERED: METOPROLOL TARTRATE 5 MG/5 ML VIAL IV PRN (08:56)
[2021-10-28] MEDS ORDERED: amLODIPine 5 MG TABLET PO SCH (09:00)
[2021-10-28] MEDS: MIDAZOLAM 100 MG in SODIUM CHLORIDE 0.9% 80 ML IV PRN (10:14)
[2021-10-28] MEDS: QUEtiapine 25 MG TABLET PO SCH ×2 (10:15→20:07)
[2021-10-28] MEDS: MELATONIN 3 MG TABLET PO SCH (20:07)
[2021-10-29] MEDS: INSULIN LISPRO 100 UNIT/ML SUBCUT SCH ×4 (00:56→17:41)
[2021-10-29 05:07] LABS: ABG Base Excess -3.1 MMOL/L (-2.5-2.5); ABG HCO3 21.8 MMOL/L (20-26); ABG Oxygen Saturation 97.5 % (95-100); ABG PCO2 40.1 MM HG (35-48); ABG PH 7.352 (7.35-7.45); ABG TCO2 20.3 MMOL/L (23-27)
[2021-10-29] MEDS: MIDAZOLAM 100 MG in SODIUM CHLORIDE 0.9% 80 ML IV PRN (06:25)
[2021-10-29] MEDS: fentaNYL INJ 1,250 MCG in SODIUM CHLORIDE 0.9% 225 ML IV PRN (06:25)
[2021-10-29 07:42] LABS: Hematocrit 26.7 VOL% (42.0-52.0); Hemoglobin 8.7 GM/DL (14.0-18.0); Immature Granulocytes % 1.5 %; Immature Granulocytes Absolute 0.06 #; Lymphocytes # 0.2 10*3/uL (1.4-4.0); Lymphocytes % 4.6 % (21.2-54.2); Mean Corpuscular HGB Conc 32.6 GM/DL (32-36); Mean Corpuscular Volume 96.4 FL (87-102); Mean Platelet Volume 13.3 FL (9.6-12.0); Monocytes % 4.1 % (1.7-12.7); Neutrophils % 89.8 % (38.7-73.9); Platelet Count 90 T/CUMM (130-400); Red Blood Count 2.77 MC/CUMM (3.8-5.5); Red Cell Distribution Width 13.5 % (9.3-17.3); White Blood Count 4.1 T/CUMM (4-12)
[2021-10-29 08:01] LABS: Hypochromia 1+; Lymphocytes 4 % (20-55); Microcytosis 1+; Platelet Estimate Decreased; Segmented Neutrophils 88 % (50-85); Total Cells Counted 100
[2021-10-29 08:05] LABS: Alanine Aminotransferase 318 U/L (16-61); Albumin 2.1 G/DL (3.4-5.0); Alkaline Phosphatase 197 U/L (45-117); Aspartate Amino Transferase 160 U/L (0-37); Blood Urea Nitrogen 81 MG/DL (7-18); Calcium 8.3 MG/DL (8.5-10.1); Carbon Dioxide 21 MMOL/L (21-32); Estimated Glom Filtration Rate 68 ML/MIN; Ferritin 1094.2 ng/mL (26-388); Glucose 242 MG/DL (74-106); Potassium 4.8 MMOL/L (3.5-5.1); Sodium 143 MMOL/L (136-145); Total Protein 4.8 G/DL (6.4-8.2)
[2021-10-29] MEDS: POLYETHYLENE GLYCOL POWDER 17 GM PACK PO SCH (09:48)
[2021-10-29] MEDS: ENOXAPARIN 40 MG/0.4 ML SYRINGE SUBCUT SCH ×2 (09:48→21:18)
[2021-10-29] MEDS: ZINC GLUCONATE 50 MG TABLET PO SCH (09:51)
[2021-10-29] MEDS: OMEGA 3 ACID ETHYL ESTERS 1 GM CAPSULE PO SCH (09:51)
[2021-10-29] MEDS: ASCORBIC ACID 500 MG TABLET PO SCH ×2 (09:51→21:17)
[2021-10-29] MEDS: ASPIRIN CHEW 81 MG TABLET PO SCH (09:51)
[2021-10-29] MEDS: PREGABALIN 75 MG CAPSULE PO SCH ×2 (09:51→21:18)
[2021-10-29] MEDS: CHOLECALCIFEROL 5,000 UNIT TABLET PO SCH ×2 (09:52→21:18)
[2021-10-29] MEDS: CETIRIZINE 10 MG TABLET PO SCH (09:52)
[2021-10-29] MEDS: LOSARTAN 50 MG TABLET PO SCH (09:52)
[2021-10-29] MEDS: amLODIPine 5 MG TABLET PO SCH (09:52)
[2021-10-29] MEDS: FAMOTIDINE 20 MG TABLET PO SCH ×2 (09:52→21:17)
[2021-10-29] MEDS: ATORVASTATIN 40 MG TABLET PO SCH (09:52)
[2021-10-29] MEDS: QUEtiapine 25 MG TABLET PO SCH ×2 (09:52→21:17)
[2021-10-29] MEDS: SERTRALINE 100 MG TABLET PO SCH (09:52)
[2021-10-29] MEDS: FERROUS SULFATE 325 MG TABLET PO SCH (09:52)
[2021-10-29] MEDS: methylPREDNISolone SOD SUC 40 MG/1 ML VIAL IV SCH ×3 (09:53→21:17)
[2021-10-29] MEDS: MEMANTINE 10 MG TABLET PO SCH ×2 (09:55→21:18)
[2021-10-29] MEDS: FUROSEMIDE 40 MG/4 ML VIAL IV SCH (09:55)
[2021-10-29] MEDS: INSULIN GLARGINE 100 UNIT/ML SUBCUT SCH ×2 (09:57→11:09)
[2021-10-29] MEDS: DEXMEDETOMIDINE 200 MCG in SODIUM CHLORIDE 0.9% 48 ML IV PRN ×2 (12:35→15:35)
[2021-10-29] MEDS: MORPHINE 2 MG/1 ML SYRINGE IV PRN (19:56)
[2021-10-29] MEDS: DEXMEDETOMIDINE 400 MCG in SODIUM CHLORIDE 0.9% 96 ML IV PRN (20:14)
[2021-10-29] MEDS: MELATONIN 3 MG TABLET PO SCH (21:17)
[2021-10-30] MEDS: INSULIN LISPRO 100 UNIT/ML SUBCUT SCH ×4 (00:57→18:10)
[2021-10-30] MEDS: MORPHINE 2 MG/1 ML SYRINGE IV PRN (01:02)
[2021-10-30 04:02] LABS: ABG Base Excess -2.4 MMOL/L (-2.5-2.5); ABG HCO3 21.8 MMOL/L (20-26); ABG Oxygen Saturation 96.8 % (95-100); ABG PCO2 34.8 MM HG (35-48); ABG PH 7.414 (7.35-7.45); ABG PO2 96.2 MM HG (80-95); ABG TCO2 22.8 MMOL/L (23-27)
[2021-10-30 06:04] LABS: Basophils % 0.1 % (0.0-0.8); Hematocrit 27.9 VOL% (42.0-52.0); Hemoglobin 9.3 GM/DL (14.0-18.0); Immature Granulocytes Absolute 0.15 #; Lymphocytes # 0.2 10*3/uL (1.4-4.0); Lymphocytes % 2.5 % (21.2-54.2); Mean Corpuscular HGB Conc 33.3 GM/DL (32-36); Mean Corpuscular Volume 94.9 FL (87-102); Mean Platelet Volume 13.5 FL (9.6-12.0); Monocytes % 4.3 % (1.7-12.7); Neutrophils % 91.1 % (38.7-73.9); Platelet Count 90 T/CUMM (130-400); Red Blood Count 2.94 MC/CUMM (3.8-5.5); Red Cell Distribution Width 13.3 % (9.3-17.3); White Blood Count 7.5 T/CUMM (4-12)
[2021-10-30 06:20] LABS: Calcium 8.5 MG/DL (8.5-10.1); Osmolality,Calculated 313.8 MOS/KG (273-304); Potassium 4.8 MMOL/L (3.5-5.1)
[2021-10-30 06:24] LABS: Band Neutrophils 3 % (0-10); Hypochromia 1+; Lymphocytes 5 % (20-55); Segmented Neutrophils 87 % (50-85); Total Cells Counted 100
[2021-10-30 06:25] LABS: Microcytosis 1+; Ovalocytes Slight
[2021-10-30 06:26] LABS: Platelet Estimate Decreased
[2021-10-30] MEDS: DEXMEDETOMIDINE 400 MCG in SODIUM CHLORIDE 0.9% 96 ML IV PRN (08:49)
[2021-10-30] MEDS: ENOXAPARIN 40 MG/0.4 ML SYRINGE SUBCUT SCH ×2 (08:51→21:14)
[2021-10-30] MEDS: FUROSEMIDE 40 MG/4 ML VIAL IV SCH (08:51)
[2021-10-30] MEDS: QUEtiapine 25 MG TABLET PO SCH (08:52)
[2021-10-30] MEDS: ASPIRIN CHEW 81 MG TABLET PO SCH (08:52)
[2021-10-30] MEDS: methylPREDNISolone SOD SUC 40 MG/1 ML VIAL IV SCH ×2 (08:52→21:17)
[2021-10-30] MEDS: INSULIN GLARGINE 100 UNIT/ML SUBCUT SCH (08:52)
[2021-10-30] MEDS: POLYETHYLENE GLYCOL POWDER 17 GM PACK PO SCH (08:52)
[2021-10-30] MEDS: ZINC GLUCONATE 50 MG TABLET PO SCH (08:52)
[2021-10-30] MEDS: LOSARTAN 50 MG TABLET PO SCH (08:53)
[2021-10-30] MEDS: ATORVASTATIN 40 MG TABLET PO SCH (08:53)
[2021-10-30] MEDS: OMEGA 3 ACID ETHYL ESTERS 1 GM CAPSULE PO SCH (08:53)
[2021-10-30] MEDS: ASCORBIC ACID 500 MG TABLET PO SCH ×2 (08:53→21:00)
[2021-10-30] MEDS: PREGABALIN 75 MG CAPSULE PO SCH (08:54)
[2021-10-30] MEDS: amLODIPine 5 MG TABLET PO SCH (08:54)
[2021-10-30] MEDS: FAMOTIDINE 20 MG TABLET PO SCH ×2 (08:54→21:15)
[2021-10-30] MEDS: FERROUS SULFATE 325 MG TABLET PO SCH (08:54)
[2021-10-30] MEDS: CHOLECALCIFEROL 5,000 UNIT TABLET PO SCH ×2 (08:55→21:15)
[2021-10-30] MEDS: SERTRALINE 100 MG TABLET PO SCH (08:55)
[2021-10-30] MEDS: CETIRIZINE 10 MG TABLET PO SCH (08:55)
[2021-10-30] MEDS: MEMANTINE 10 MG TABLET PO SCH ×2 (09:11→21:16)
[2021-10-30 14:06] LABS: ABG Base Excess 1.6 MMOL/L (-2.5-2.5); ABG HCO3 25.4 MMOL/L (20-26); ABG Oxygen Saturation 95.9 % (95-100); ABG PCO2 36.9 MM HG (35-48); ABG PH 7.456 (7.35-7.45); ABG PO2 84.5 MM HG (80-95); ABG TCO2 26.6 MMOL/L (23-27); Pt O2 Delivery Device Ventilator
[2021-10-30] MEDS ORDERED: LORazepam 2 MG/1 ML VIAL IV PRN (20:47)
[2021-10-30] MEDS ORDERED: MORPHINE 2 MG/1 ML SYRINGE IV PRN (20:47)
[2021-10-30] MEDS: MELATONIN 3 MG TABLET PO SCH (21:14)
[2021-10-31] MEDS: hydrALAZINE 20 MG/1 ML VIAL IV PRN (00:16)
[2021-10-31] MEDS: INSULIN LISPRO 100 UNIT/ML SUBCUT SCH ×5 (00:43→20:44)
[2021-10-31 03:26] LABS: ABG Base Excess 3.4 MMOL/L (-2.5-2.5); ABG HCO3 27.5 MMOL/L (20-26); ABG Oxygen Saturation 96.2 % (95-100); ABG PCO2 39.5 MM HG (35-48); ABG PO2 88.2 MM HG (80-95); ABG TCO2 28.7 MMOL/L (23-27); Allen Test Positive; Pt O2 Delivery Device Ventilator
[2021-10-31] MEDS: DEXMEDETOMIDINE 400 MCG in SODIUM CHLORIDE 0.9% 96 ML IV PRN (04:07)
[2021-10-31 04:10] LABS: Hemoglobin 8.8 GM/DL (14.0-18.0); Immature Granulocytes % 2.1 %; Lymphocytes # 0.3 10*3/uL (1.4-4.0); Lymphocytes % 3.6 % (21.2-54.2); Mean Corpuscular HGB Conc 33.8 GM/DL (32-36); Mean Corpuscular Volume 94.2 FL (87-102); Monocytes % 4.6 % (1.7-12.7); Neutrophils % 89.7 % (38.7-73.9); Platelet Count 112 T/CUMM (130-400); Red Blood Count 2.76 MC/CUMM (3.8-5.5); Red Cell Distribution Width 13.2 % (9.3-17.3); White Blood Count 9.5 T/CUMM (4-12)
[2021-10-31 04:40] LABS: Albumin 2.3 G/DL (3.4-5.0); Bilirubin,Total 0.8 MG/DL (0.20-1.00); Calcium 8.7 MG/DL (8.5-10.1); Osmolality,Calculated 307.8 MOS/KG (273-304); Potassium 4.6 MMOL/L (3.5-5.1); Total Protein 5.4 G/DL (6.4-8.2)
[2021-10-31 05:34] LABS: Lymphocytes 5 % (20-55); Segmented Neutrophils 93 % (50-85); Total Cells Counted 100
[2021-10-31 05:35] LABS: Hypochromia 1+; Microcytosis 1+
[2021-10-31 06:26] LABS: Ferritin 1278.8 ng/mL (26-388)
[2021-10-31 08:28] LABS: ABG Base Excess 4.1 MMOL/L (-2.5-2.5); ABG Oxygen Saturation 96.8 % (95-100); ABG PH 7.465 (7.35-7.45); ABG PO2 84.1 MM HG (80-95); ABG TCO2 25.5 MMOL/L (23-27); Allen Test Positive; Pt O2 Delivery Device Ventilator
[2021-10-31] MEDS: FERROUS SULFATE 325 MG TABLET PO SCH (08:57)
[2021-10-31] MEDS: ATORVASTATIN 40 MG TABLET PO SCH (08:57)
[2021-10-31] MEDS: ASPIRIN CHEW 81 MG TABLET PO SCH (08:57)
[2021-10-31] MEDS: LOSARTAN 50 MG TABLET PO SCH (08:57)
[2021-10-31] MEDS: amLODIPine 5 MG TABLET PO SCH (08:58)
[2021-10-31] MEDS: ENOXAPARIN 40 MG/0.4 ML SYRINGE SUBCUT SCH ×2 (09:25→20:44)
[2021-10-31] MEDS: methylPREDNISolone SOD SUC 40 MG/1 ML VIAL IV SCH ×2 (09:26→11:54)
[2021-10-31] MEDS: FUROSEMIDE 40 MG/4 ML VIAL IV SCH (09:26)
[2021-10-31] MEDS: OMEGA 3 ACID ETHYL ESTERS 1 GM CAPSULE PO SCH (09:27)
[2021-10-31] MEDS: INSULIN GLARGINE 100 UNIT/ML SUBCUT SCH (09:27)
[2021-10-31] MEDS: MEMANTINE 10 MG TABLET PO SCH ×2 (09:28→20:59)
[2021-10-31] MEDS: ASCORBIC ACID 500 MG TABLET PO SCH ×2 (09:28→20:59)
[2021-10-31] MEDS: POLYETHYLENE GLYCOL POWDER 17 GM PACK PO SCH (09:28)
[2021-10-31] MEDS: FAMOTIDINE 20 MG TABLET PO SCH (09:28)
[2021-10-31] MEDS: CETIRIZINE 10 MG TABLET PO SCH (09:29)
[2021-10-31] MEDS: CHOLECALCIFEROL 5,000 UNIT TABLET PO SCH ×2 (09:29→20:59)
[2021-10-31] MEDS: ZINC GLUCONATE 50 MG TABLET PO SCH (09:29)
[2021-10-31] MEDS: SERTRALINE 100 MG TABLET PO SCH (09:29)
[2021-10-31] MEDS: PANTOPRAZOLE 40 MG VIAL IV SCH ×2 (09:31→20:43)
[2021-10-31 16:26] LABS: Hemoglobin 8.4 GM/DL (14.0-18.0)
[2021-10-31] MEDS: MELATONIN 3 MG TABLET PO SCH (20:59)
[2021-11-01] MEDS: methylPREDNISolone SOD SUC 40 MG/1 ML VIAL IV SCH ×2 (00:44→11:09)
[2021-11-01 03:23] LABS: Eosinophils % 0.1 % (0.00-10.9); Hematocrit 24.2 VOL% (42.0-52.0); Hemoglobin 8.1 GM/DL (14.0-18.0); Immature Granulocytes % 1.6 %; Immature Granulocytes Absolute 0.15 #; Lymphocytes # 0.5 10*3/uL (1.4-4.0); Mean Corpuscular HGB Conc 33.5 GM/DL (32-36); Mean Corpuscular Volume 93.8 FL (87-102); Mean Platelet Volume 12.4 FL (9.6-12.0); Monocytes % 6.6 % (1.7-12.7); Neutrophils % 86.7 % (38.7-73.9); Platelet Count 113 T/CUMM (130-400); Red Blood Count 2.58 MC/CUMM (3.8-5.5); Red Cell Distribution Width 13.1 % (9.3-17.3); White Blood Count 9.1 T/CUMM (4-12)
[2021-11-01 03:39] LABS: Alanine Aminotransferase 620 U/L (16-61); Albumin 2.3 G/DL (3.4-5.0); Alkaline Phosphatase 294 U/L (45-117); Aspartate Amino Transferase 255 U/L (0-37); Blood Urea Nitrogen 60 MG/DL (7-18); Calcium 8.6 MG/DL (8.5-10.1); Carbon Dioxide 30 MMOL/L (21-32); Estimated Glom Filtration Rate 89 ML/MIN; Ferritin 1435.5 ng/mL (26-388); Glucose 94 MG/DL (74-106); Osmolality,Calculated 304.7 MOS/KG (273-304); Potassium 4.4 MMOL/L (3.5-5.1); Sodium 145 MMOL/L (136-145); Total Protein 5.4 G/DL (6.4-8.2)
[2021-11-01] MEDS: DOCUSATE SODIUM 100 MG/10 ML UDCUP PO PRN ×2 (04:10→20:09)
[2021-11-01 04:27] LABS: ABG Base Excess 5.6 MMOL/L (-2.5-2.5); ABG HCO3 29.4 MMOL/L (20-26); ABG Oxygen Saturation 92.1 % (95-100); ABG PCO2 37.6 MM HG (35-48); ABG PH 7.497 (7.35-7.45); ABG PO2 62.2 MM HG (80-95); ABG TCO2 26.8 MMOL/L (23-27); Allen Test Positive
[2021-11-01] MEDS: INSULIN LISPRO 100 UNIT/ML SUBCUT SCH ×4 (08:09→21:47)
[2021-11-01] MEDS: MEMANTINE 10 MG TABLET PO SCH ×2 (08:10→20:08)
[2021-11-01] MEDS: POLYETHYLENE GLYCOL POWDER 17 GM PACK PO SCH (08:10)
[2021-11-01] MEDS: FERROUS SULFATE 325 MG TABLET PO SCH (08:11)
[2021-11-01] MEDS: FUROSEMIDE 40 MG/4 ML VIAL IV SCH (08:11)
[2021-11-01] MEDS: LOSARTAN 50 MG TABLET PO SCH (08:11)
[2021-11-01] MEDS: ASPIRIN CHEW 81 MG TABLET PO SCH (08:11)
[2021-11-01] MEDS: ENOXAPARIN 40 MG/0.4 ML SYRINGE SUBCUT SCH ×2 (08:12→20:09)
[2021-11-01] MEDS: ZINC GLUCONATE 50 MG TABLET PO SCH (08:12)
[2021-11-01] MEDS: CETIRIZINE 10 MG TABLET PO SCH (08:12)
[2021-11-01] MEDS: ASCORBIC ACID 500 MG TABLET PO SCH ×2 (08:12→20:08)
[2021-11-01] MEDS: PANTOPRAZOLE 40 MG VIAL IV SCH ×2 (08:12→20:08)
[2021-11-01] MEDS: ATORVASTATIN 40 MG TABLET PO SCH (08:12)
[2021-11-01] MEDS: CHOLECALCIFEROL 5,000 UNIT TABLET PO SCH ×2 (08:12→20:08)
[2021-11-01] MEDS: OMEGA 3 ACID ETHYL ESTERS 1 GM CAPSULE PO SCH (08:12)
[2021-11-01] MEDS: amLODIPine 5 MG TABLET PO SCH (08:12)
[2021-11-01] MEDS: SERTRALINE 100 MG TABLET PO SCH (08:12)
[2021-11-01] MEDS ORDERED: INSULIN GLARGINE 100 UNIT/ML SUBCUT SCH (09:00)
[2021-11-01] MEDS: MELATONIN 3 MG TABLET PO SCH (20:08)
[2021-11-01] MEDS ORDERED: LORazepam 2 MG/1 ML VIAL ONE (23:25)
[2021-11-01] MEDS ORDERED: PROMETHAZINE 25 MG SUPP RECTAL PRN (23:38)
[2021-11-02] MEDS: methylPREDNISolone SOD SUC 40 MG/1 ML VIAL IV SCH ×2 (00:01→12:50)
[2021-11-02] MEDS ORDERED: PROMETHAZINE 12.5 MG SUPP RECTAL PRN (06:00)
[2021-11-02] MEDS: FUROSEMIDE 40 MG/4 ML VIAL IV SCH (08:15)
[2021-11-02] MEDS: INSULIN LISPRO 100 UNIT/ML SUBCUT SCH ×4 (08:16→21:14)
[2021-11-02] MEDS: ENOXAPARIN 40 MG/0.4 ML SYRINGE SUBCUT SCH ×2 (08:16→20:55)
[2021-11-02] MEDS: PANTOPRAZOLE 40 MG VIAL IV SCH ×2 (08:16→20:59)
[2021-11-02] MEDS: POLYETHYLENE GLYCOL POWDER 17 GM PACK PO SCH (08:17)
[2021-11-02] MEDS: LOSARTAN 50 MG TABLET PO SCH (08:17)
[2021-11-02] MEDS: ASCORBIC ACID 500 MG TABLET PO SCH ×2 (08:17→20:55)
[2021-11-02] MEDS: ASPIRIN CHEW 81 MG TABLET PO SCH (08:17)
[2021-11-02] MEDS: amLODIPine 5 MG TABLET PO SCH (08:17)
[2021-11-02] MEDS: SERTRALINE 100 MG TABLET PO SCH (08:18)
[2021-11-02] MEDS: FERROUS SULFATE 325 MG TABLET PO SCH (08:18)
[2021-11-02] MEDS: ZINC GLUCONATE 50 MG TABLET PO SCH (08:18)
[2021-11-02] MEDS: ATORVASTATIN 40 MG TABLET PO SCH (08:18)
[2021-11-02] MEDS: OMEGA 3 ACID ETHYL ESTERS 1 GM CAPSULE PO SCH (08:18)
[2021-11-02] MEDS: CHOLECALCIFEROL 5,000 UNIT TABLET PO SCH ×2 (08:22→20:55)
[2021-11-02 08:28] LABS: Eosinophils % 0.3 % (0.00-10.9); Hematocrit 21.6 VOL% (42.0-52.0); Hemoglobin 7.4 GM/DL (14.0-18.0); Immature Granulocytes % 2.2 %; Immature Granulocytes Absolute 0.13 #; Lymphocytes # 0.5 10*3/uL (1.4-4.0); Lymphocytes % 8.7 % (21.2-54.2); Mean Corpuscular HGB Conc 34.3 GM/DL (32-36); Mean Corpuscular Volume 94.3 FL (87-102); Monocytes % 5.1 % (1.7-12.7); Neutrophils % 83.7 % (38.7-73.9); Platelet Count 100 T/CUMM (130-400); Red Blood Count 2.29 MC/CUMM (3.8-5.5); Red Cell Distribution Width 12.8 % (9.3-17.3); White Blood Count 5.8 T/CUMM (4-12)
[2021-11-02 08:51] LABS: Albumin 2.3 G/DL (3.4-5.0); Bilirubin,Total 1.3 MG/DL (0.20-1.00); Calcium 8.4 MG/DL (8.5-10.1); Osmolality,Calculated 298.4 MOS/KG (273-304); Potassium 4.6 MMOL/L (3.5-5.1); Total Protein 5.3 G/DL (6.4-8.2)
[2021-11-02] MEDS: MEMANTINE 10 MG TABLET PO SCH ×2 (10:05→20:55)
[2021-11-02] MEDS ORDERED: SODIUM CHLORIDE 0.9% 1,000 ML IV PRN (15:15)
[2021-11-02] MEDS: MELATONIN 3 MG TABLET PO SCH (20:55)
[2021-11-02] MEDS: EZETIMIBE 10 MG TABLET PO SCH (20:55)
[2021-11-02] MEDS: INSULIN GLARGINE 100 UNIT/ML SUBCUT SCH (20:58)
[2021-11-03] MEDS: methylPREDNISolone SOD SUC 40 MG/1 ML VIAL IV SCH ×2 (00:03→12:00)
[2021-11-03] MEDS: PANTOPRAZOLE 40 MG VIAL IV SCH ×3 (00:04→21:00)
[2021-11-03 01:50] LABS: Hematocrit 26.4 VOL% (42.0-52.0)
[2021-11-03 06:21] LABS: Basophils % 0.2 % (0.0-0.8); Eosinophils # 0.1 10*3/uL (0.0-0.87); Eosinophils % 0.9 % (0.00-10.9); Hematocrit 28.8 VOL% (42.0-52.0); Hemoglobin 9.7 GM/DL (14.0-18.0); Immature Granulocytes % 2.7 %; Immature Granulocytes Absolute 0.15 #; Lymphocytes # 0.4 10*3/uL (1.4-4.0); Mean Corpuscular HGB Conc 33.7 GM/DL (32-36); Mean Corpuscular Volume 92.9 FL (87-102); Mean Platelet Volume 12.2 FL (9.6-12.0); Neutrophils % 84.2 % (38.7-73.9); Platelet Count 86 T/CUMM (130-400); Red Cell Distribution Width 13.1 % (9.3-17.3); White Blood Count 5.5 T/CUMM (4-12)
[2021-11-03 06:34] LABS: Calcium 8.3 MG/DL (8.5-10.1); Osmolality,Calculated 295.4 MOS/KG (273-304); Potassium 4.8 MMOL/L (3.5-5.1)
[2021-11-03 07:47] LABS: Anisocytosis 1+; Hypochromia 2+
[2021-11-03] MEDS: FUROSEMIDE 40 MG/4 ML VIAL IV SCH (09:00)
[2021-11-03] MEDS: INSULIN LISPRO 100 UNIT/ML SUBCUT SCH ×4 (10:00→20:57)
[2021-11-03] MEDS: OMEGA 3 ACID ETHYL ESTERS 1 GM CAPSULE PO SCH (11:22)
[2021-11-03] MEDS: LOSARTAN 50 MG TABLET PO SCH (11:23)
[2021-11-03] MEDS: CHOLECALCIFEROL 5,000 UNIT TABLET PO SCH ×2 (11:23→20:56)
[2021-11-03] MEDS: ASPIRIN CHEW 81 MG TABLET PO SCH (11:23)
[2021-11-03] MEDS: ASCORBIC ACID 500 MG TABLET PO SCH ×2 (11:23→20:56)
[2021-11-03] MEDS: amLODIPine 5 MG TABLET PO SCH (11:24)
[2021-11-03] MEDS: FERROUS SULFATE 325 MG TABLET PO SCH (11:24)
[2021-11-03] MEDS: POLYETHYLENE GLYCOL POWDER 17 GM PACK PO SCH (11:24)
[2021-11-03] MEDS: MEMANTINE 10 MG TABLET PO SCH ×2 (11:24→20:56)
[2021-11-03] MEDS: SERTRALINE 100 MG TABLET PO SCH (11:24)
[2021-11-03] MEDS: ENOXAPARIN 40 MG/0.4 ML SYRINGE SUBCUT SCH ×2 (11:29→20:56)
[2021-11-03 16:26] LABS: Hepatitis B Core IgM Quant 0.24 Index; Hepatitis B Surface Ag Quant < 0.10 Index; Hepatitis B Surface Ag Result Non-Reactive (NonReactive); Hepatitis C Virus Ab Quant < 0.02 Index; Hepatitis C Virus Ab Result Non-Reactive (NonReactive)
[2021-11-03] MEDS: ZINC GLUCONATE 50 MG TABLET PO SCH (19:21)
[2021-11-03] MEDS: EZETIMIBE 10 MG TABLET PO SCH (20:56)
[2021-11-03] MEDS: MELATONIN 3 MG TABLET PO SCH (20:56)
[2021-11-03] MEDS: INSULIN GLARGINE 100 UNIT/ML SUBCUT SCH (20:57)
[2021-11-04] MEDS: methylPREDNISolone SOD SUC 40 MG/1 ML VIAL IV SCH ×2 (00:02→21:59)
[2021-11-04 05:27] LABS: Eosinophils % 0.2 % (0.00-10.9); Hemoglobin 9.8 GM/DL (14.0-18.0); Immature Granulocytes % 2.5 %; Immature Granulocytes Absolute 0.12 #; Lymphocytes # 0.3 10*3/uL (1.4-4.0); Mean Corpuscular HGB Conc 33.8 GM/DL (32-36); Mean Corpuscular Volume 92.4 FL (87-102); Mean Platelet Volume 11.9 FL (9.6-12.0); Monocytes % 2.9 % (1.7-12.7); Neutrophils % 87.4 % (38.7-73.9); Platelet Count 81 T/CUMM (130-400); Red Blood Count 3.14 MC/CUMM (3.8-5.5); Red Cell Distribution Width 12.7 % (9.3-17.3); White Blood Count 4.8 T/CUMM (4-12)
[2021-11-04 05:50] LABS: Hypochromia Slight; Microcytosis Slight; Platelet Estimate Decreased
[2021-11-04 06:10] LABS: Albumin 2.3 G/DL (3.4-5.0); Bilirubin,Total 1.6 MG/DL (0.20-1.00); Calcium 8.6 MG/DL (8.5-10.1); Osmolality,Calculated 290.7 MOS/KG (273-304); Potassium 4.4 MMOL/L (3.5-5.1); Total Protein 5.5 G/DL (6.4-8.2)
[2021-11-04] MEDS: INSULIN LISPRO 100 UNIT/ML SUBCUT SCH ×4 (09:23→21:58)
[2021-11-04] MEDS: ENOXAPARIN 40 MG/0.4 ML SYRINGE SUBCUT SCH ×2 (09:30→21:59)
[2021-11-04] MEDS: ZINC GLUCONATE 50 MG TABLET PO SCH (09:32)
[2021-11-04] MEDS: OMEGA 3 ACID ETHYL ESTERS 1 GM CAPSULE PO SCH (09:34)
[2021-11-04] MEDS: CHOLECALCIFEROL 5,000 UNIT TABLET PO SCH (09:34)
[2021-11-04] MEDS: ASPIRIN CHEW 81 MG TABLET PO SCH (09:34)
[2021-11-04] MEDS: ASCORBIC ACID 500 MG TABLET PO SCH ×2 (09:34→21:56)
[2021-11-04] MEDS: SERTRALINE 100 MG TABLET PO SCH (09:35)
[2021-11-04] MEDS: FERROUS SULFATE 325 MG TABLET PO SCH (09:35)
[2021-11-04] MEDS: MEMANTINE 10 MG TABLET PO SCH ×2 (09:35→21:56)
[2021-11-04] MEDS: LOSARTAN 50 MG TABLET PO SCH (09:35)
[2021-11-04] MEDS: POLYETHYLENE GLYCOL POWDER 17 GM PACK PO SCH (09:36)
[2021-11-04] MEDS: FUROSEMIDE 40 MG/4 ML VIAL IV SCH (09:56)
[2021-11-04] MEDS: PANTOPRAZOLE 40 MG VIAL IV SCH ×2 (10:01→21:57)
[2021-11-04] MEDS: amLODIPine 5 MG TABLET PO SCH (10:07)
[2021-11-04] MEDS ORDERED: hydrALAZINE 25 MG TABLET PO SCH (13:00)
[2021-11-04] MEDS: EZETIMIBE 10 MG TABLET PO SCH (21:56)
[2021-11-04] MEDS: TAMSULOSIN 0.4 MG CAPSULE PO SCH (21:56)
[2021-11-04] MEDS: MELATONIN 3 MG TABLET PO SCH (21:56)
[2021-11-04] MEDS: INSULIN GLARGINE 100 UNIT/ML SUBCUT SCH (21:58)
[2021-11-05 06:03] LABS: Eosinophils % 0.5 % (0.00-10.9); Hematocrit 27.3 VOL% (42.0-52.0); Hemoglobin 9.2 GM/DL (14.0-18.0); Immature Granulocytes % 1.2 %; Immature Granulocytes Absolute 0.05 #; Lymphocytes # 0.4 10*3/uL (1.4-4.0); Lymphocytes % 8.3 % (21.2-54.2); Mean Corpuscular HGB Conc 33.7 GM/DL (32-36); Mean Corpuscular Volume 93.8 FL (87-102); Mean Platelet Volume 11.8 FL (9.6-12.0); NRBC # 0.02 10*3/uL; Platelet Count 72 T/CUMM (130-400); Red Blood Count 2.91 MC/CUMM (3.8-5.5); Red Cell Distribution Width 12.7 % (9.3-17.3); White Blood Count 4.2 T/CUMM (4-12)
[2021-11-05 06:21] LABS: Hypochromia 1+; Microcytosis 1+; Platelet Estimate Decreased
[2021-11-05 07:03] LABS: Albumin 2.2 G/DL (3.4-5.0); Bilirubin,Total 1.6 MG/DL (0.20-1.00); Calcium 8.4 MG/DL (8.5-10.1); Osmolality,Calculated 290.7 MOS/KG (273-304); Potassium 4.4 MMOL/L (3.5-5.1); Total Protein 5.3 G/DL (6.4-8.2)
[2021-11-05] MEDS: ASPIRIN CHEW 81 MG TABLET PO SCH (09:53)
[2021-11-05] MEDS: INSULIN LISPRO 100 UNIT/ML SUBCUT SCH ×4 (09:53→20:49)
[2021-11-05] MEDS: ENOXAPARIN 40 MG/0.4 ML SYRINGE SUBCUT SCH ×2 (09:54→20:46)
[2021-11-05] MEDS: FERROUS SULFATE 325 MG TABLET PO SCH (09:54)
[2021-11-05] MEDS: TAMSULOSIN 0.4 MG CAPSULE PO SCH ×2 (09:54→20:46)
[2021-11-05] MEDS: FUROSEMIDE 40 MG/4 ML VIAL IV SCH (09:54)
[2021-11-05] MEDS: OMEGA 3 ACID ETHYL ESTERS 1 GM CAPSULE PO SCH (09:54)
[2021-11-05] MEDS: LOSARTAN 50 MG TABLET PO SCH (09:54)
[2021-11-05] MEDS: PANTOPRAZOLE 40 MG VIAL IV SCH ×2 (09:55→20:46)
[2021-11-05] MEDS: methylPREDNISolone SOD SUC 40 MG/1 ML VIAL IV SCH ×2 (09:55→20:47)
[2021-11-05] MEDS: ASCORBIC ACID 500 MG TABLET PO SCH ×2 (09:55→20:46)
[2021-11-05] MEDS: ZINC GLUCONATE 50 MG TABLET PO SCH (09:55)
[2021-11-05] MEDS: POLYETHYLENE GLYCOL POWDER 17 GM PACK PO SCH (09:55)
[2021-11-05] MEDS: SERTRALINE 100 MG TABLET PO SCH (09:55)
[2021-11-05] MEDS: MEMANTINE 10 MG TABLET PO SCH ×2 (09:55→20:45)
[2021-11-05] MEDS: amLODIPine 5 MG TABLET PO SCH (09:55)
[2021-11-05] MEDS: ACETAMINOPHEN 325 MG TABLET PO PRN (16:44)
[2021-11-05] MEDS: MELATONIN 3 MG TABLET PO SCH (20:45)
[2021-11-05] MEDS: EZETIMIBE 10 MG TABLET PO SCH (20:46)
[2021-11-05] MEDS: INSULIN GLARGINE 100 UNIT/ML SUBCUT SCH (20:49)
[2021-11-06 04:45] LABS: Eosinophils % 0.2 % (0.00-10.9); Hematocrit 28.9 VOL% (42.0-52.0); Hemoglobin 9.7 GM/DL (14.0-18.0); Immature Granulocytes % 0.9 %; Immature Granulocytes Absolute 0.04 #; Lymphocytes # 0.5 10*3/uL (1.4-4.0); Mean Corpuscular HGB Conc 33.6 GM/DL (32-36); Mean Corpuscular Volume 93.5 FL (87-102); Mean Platelet Volume 11.5 FL (9.6-12.0); Neutrophils % 83.9 % (38.7-73.9); Platelet Count 66 T/CUMM (130-400); Red Blood Count 3.09 MC/CUMM (3.8-5.5); Red Cell Distribution Width 12.7 % (9.3-17.3); White Blood Count 4.3 T/CUMM (4-12)
[2021-11-06 05:04] LABS: Hypochromia 1+; Microcytosis 1+; Ovalocytes Slight
[2021-11-06 05:05] LABS: Platelet Estimate Decreased
[2021-11-06 05:07] LABS: Albumin 2.5 G/DL (3.4-5.0); Bilirubin,Total 0.8 MG/DL (0.20-1.00); Calcium 8.7 MG/DL (8.5-10.1); Osmolality,Calculated 287.8 MOS/KG (273-304); Potassium 4.1 MMOL/L (3.5-5.1); Total Protein 5.8 G/DL (6.4-8.2)
[2021-11-06] MEDS: TAMSULOSIN 0.4 MG CAPSULE PO SCH ×2 (09:49→22:31)
[2021-11-06] MEDS: OMEGA 3 ACID ETHYL ESTERS 1 GM CAPSULE PO SCH (09:50)
[2021-11-06] MEDS: PANTOPRAZOLE 40 MG VIAL IV SCH (09:50)
[2021-11-06] MEDS: MEMANTINE 10 MG TABLET PO SCH ×2 (09:50→22:32)
[2021-11-06] MEDS: ZINC GLUCONATE 50 MG TABLET PO SCH (09:50)
[2021-11-06] MEDS: FUROSEMIDE 40 MG/4 ML VIAL IV SCH (09:51)
[2021-11-06] MEDS: FERROUS SULFATE 325 MG TABLET PO SCH (09:51)
[2021-11-06] MEDS: amLODIPine 5 MG TABLET PO SCH (09:51)
[2021-11-06] MEDS: ASPIRIN CHEW 81 MG TABLET PO SCH (09:51)
[2021-11-06] MEDS: LOSARTAN 50 MG TABLET PO SCH (09:52)
[2021-11-06] MEDS: SERTRALINE 100 MG TABLET PO SCH (09:52)
[2021-11-06] MEDS: INSULIN LISPRO 100 UNIT/ML SUBCUT SCH ×4 (09:52→22:33)
[2021-11-06] MEDS: ASCORBIC ACID 500 MG TABLET PO SCH ×2 (09:52→22:32)
[2021-11-06] MEDS: ENOXAPARIN 40 MG/0.4 ML SYRINGE SUBCUT SCH ×2 (09:53→22:33)
[2021-11-06] MEDS: methylPREDNISolone SOD SUC 40 MG/1 ML VIAL IV SCH ×2 (09:53→22:32)
[2021-11-06] MEDS: POLYETHYLENE GLYCOL POWDER 17 GM PACK PO SCH (09:53)
[2021-11-06] MEDS: MELATONIN 3 MG TABLET PO SCH (22:31)
[2021-11-06] MEDS: PANTOPRAZOLE 40 MG TABLET PO SCH (22:31)
[2021-11-06] MEDS: EZETIMIBE 10 MG TABLET PO SCH (22:32)
[2021-11-06] MEDS: INSULIN GLARGINE 100 UNIT/ML SUBCUT SCH (22:33)
[2021-11-07 05:40] LABS: Eosinophils % 0.9 % (0.00-10.9); Hematocrit 28.4 VOL% (42.0-52.0); Hemoglobin 9.3 GM/DL (14.0-18.0); Immature Granulocytes % 0.9 %; Immature Granulocytes Absolute 0.03 #; Lymphocytes # 0.4 10*3/uL (1.4-4.0); Mean Corpuscular HGB Conc 32.7 GM/DL (32-36); Mean Corpuscular Volume 95.6 FL (87-102); Mean Platelet Volume 12.5 FL (9.6-12.0); Monocytes % 4.1 % (1.7-12.7); Neutrophils % 82.1 % (38.7-73.9); Platelet Count 54 T/CUMM (130-400); Red Blood Count 2.97 MC/CUMM (3.8-5.5); White Blood Count 3.4 T/CUMM (4-12)
[2021-11-07 06:06] LABS: Albumin 2.4 G/DL (3.4-5.0); Bilirubin,Total 0.8 MG/DL (0.20-1.00); Calcium 8.3 MG/DL (8.5-10.1); Osmolality,Calculated 286.8 MOS/KG (273-304); Potassium 4.2 MMOL/L (3.5-5.1); Total Protein 5.4 G/DL (6.4-8.2)
[2021-11-07 06:18] LABS: Anisocytosis 2+; Platelet Estimate Decreased
[2021-11-07 06:19] LABS: Macrocytosis Slight
[2021-11-07] MEDS: POLYETHYLENE GLYCOL POWDER 17 GM PACK PO SCH ×2 (10:01→22:56)
[2021-11-07] MEDS: INSULIN LISPRO 100 UNIT/ML SUBCUT SCH ×4 (10:02→22:54)
[2021-11-07] MEDS: methylPREDNISolone SOD SUC 40 MG/1 ML VIAL IV SCH (10:02)
[2021-11-07] MEDS: FUROSEMIDE 40 MG/4 ML VIAL IV SCH (10:02)
[2021-11-07] MEDS: ENOXAPARIN 40 MG/0.4 ML SYRINGE SUBCUT SCH ×2 (10:03→23:00)
[2021-11-07] MEDS: ASCORBIC ACID 500 MG TABLET PO SCH ×2 (10:03→22:55)
[2021-11-07] MEDS: LOSARTAN 50 MG TABLET PO SCH (10:03)
[2021-11-07] MEDS: SERTRALINE 100 MG TABLET PO SCH (10:04)
[2021-11-07] MEDS: TAMSULOSIN 0.4 MG CAPSULE PO SCH ×2 (10:04→22:55)
[2021-11-07] MEDS: ZINC GLUCONATE 50 MG TABLET PO SCH (10:04)
[2021-11-07] MEDS: amLODIPine 5 MG TABLET PO SCH (10:04)
[2021-11-07] MEDS: OMEGA 3 ACID ETHYL ESTERS 1 GM CAPSULE PO SCH (10:04)
[2021-11-07] MEDS: PANTOPRAZOLE 40 MG TABLET PO SCH ×2 (10:05→22:55)
[2021-11-07] MEDS: MEMANTINE 10 MG TABLET PO SCH ×2 (10:05→22:56)
[2021-11-07] MEDS: ASPIRIN CHEW 81 MG TABLET PO SCH (10:05)
[2021-11-07] MEDS: DAPAGLIFLOZIN 10 MG TABLET PO SCH (10:05)
[2021-11-07] MEDS: FERROUS SULFATE 325 MG TABLET PO SCH (10:05)
[2021-11-07] MEDS ORDERED: PROMETHAZINE 25 MG/1 ML VIAL IM PRN (12:39)
[2021-11-07] MEDS ORDERED: SENNA 8.6 MG TABLET PO SCH (21:00)
[2021-11-07] MEDS ORDERED: INSULIN GLARGINE 100 UNIT/ML SUBCUT SCH (21:00)
[2021-11-07] MEDS: EZETIMIBE 10 MG TABLET PO SCH (22:55)
[2021-11-07] MEDS: MELATONIN 3 MG TABLET PO SCH (22:55)
[2021-11-07] MEDS: LUBIPROSTONE 8 MCG CAPSULE PO SCH (22:56)
[2021-11-07] MEDS: DOCUSATE SODIUM 100 MG/10 ML UDCUP PO SCH (22:56)
[2021-11-08 06:17] LABS: Eosinophils # 0.1 10*3/uL (0.0-0.87); Eosinophils % 2.6 % (0.00-10.9); Hematocrit 32.2 VOL% (42.0-52.0); Hemoglobin 10.7 GM/DL (14.0-18.0); Immature Granulocytes % 1.4 %; Immature Granulocytes Absolute 0.06 #; Lymphocytes # 0.6 10*3/uL (1.4-4.0); Lymphocytes % 14.4 % (21.2-54.2); Mean Corpuscular HGB Conc 33.2 GM/DL (32-36); Mean Corpuscular Volume 95.8 FL (87-102); Mean Platelet Volume 11.6 FL (9.6-12.0); Monocytes % 6.2 % (1.7-12.7); Neutrophils % 75.4 % (38.7-73.9); Platelet Count 47 T/CUMM (130-400); Red Blood Count 3.36 MC/CUMM (3.8-5.5); Red Cell Distribution Width 13.2 % (9.3-17.3); White Blood Count 4.2 T/CUMM (4-12)
[2021-11-08 06:50] LABS: Albumin 2.6 G/DL (3.4-5.0); Bilirubin,Total 1.1 MG/DL (0.20-1.00); Calcium 8.3 MG/DL (8.5-10.1); Potassium 3.6 MMOL/L (3.5-5.1); Total Protein 5.8 G/DL (6.4-8.2)
[2021-11-08] MEDS ORDERED: LINACLOTIDE 145 MCG CAPSULE PO SCH (07:30)
[2021-11-08 08:00] LABS: Anisocytosis 1+; Macrocytosis Slight; Platelet Estimate Decreased; Tear Drop Cells Few
[2021-11-08] MEDS: INSULIN LISPRO 100 UNIT/ML SUBCUT SCH ×4 (10:26→22:09)
[2021-11-08] MEDS: LUBIPROSTONE 8 MCG CAPSULE PO SCH (10:48)
[2021-11-08] MEDS: LOSARTAN 50 MG TABLET PO SCH (10:49)
[2021-11-08] MEDS: ASPIRIN CHEW 81 MG TABLET PO SCH (10:49)
[2021-11-08] MEDS: ENOXAPARIN 40 MG/0.4 ML SYRINGE SUBCUT SCH ×2 (10:49→22:03)
[2021-11-08] MEDS: DOCUSATE SODIUM 100 MG/10 ML UDCUP PO SCH (10:49)
[2021-11-08] MEDS: OMEGA 3 ACID ETHYL ESTERS 1 GM CAPSULE PO SCH (10:49)
[2021-11-08] MEDS: TAMSULOSIN 0.4 MG CAPSULE PO SCH ×2 (10:49→22:03)
[2021-11-08] MEDS: FUROSEMIDE 40 MG/4 ML VIAL IV SCH (10:49)
[2021-11-08] MEDS: DAPAGLIFLOZIN 10 MG TABLET PO SCH (10:49)
[2021-11-08] MEDS: predniSONE 20 MG TABLET PO SCH (10:50)
[2021-11-08] MEDS: PANTOPRAZOLE 40 MG TABLET PO SCH ×2 (10:50→22:03)
[2021-11-08] MEDS: SERTRALINE 100 MG TABLET PO SCH (10:50)
[2021-11-08] MEDS: ASCORBIC ACID 500 MG TABLET PO SCH ×2 (10:50→22:03)
[2021-11-08] MEDS: amLODIPine 5 MG TABLET PO SCH (10:50)
[2021-11-08] MEDS: POLYETHYLENE GLYCOL POWDER 17 GM PACK PO SCH (10:50)
[2021-11-08] MEDS: MEMANTINE 10 MG TABLET PO SCH ×2 (10:50→22:03)
[2021-11-08] MEDS: PROCHLORPERAZINE 10 MG/2 ML VIAL IV SCH (17:08)
[2021-11-08] MEDS ORDERED: INSULIN GLARGINE 100 UNIT/ML SUBCUT SCH (21:00)
[2021-11-08] MEDS: EZETIMIBE 10 MG TABLET PO SCH (22:02)
[2021-11-08] MEDS: MELATONIN 3 MG TABLET PO SCH (22:02)
[2021-11-09] MEDS: PROCHLORPERAZINE 10 MG/2 ML VIAL IV SCH ×2 (01:28→10:54)
[2021-11-09 06:12] LABS: Basophils % 0.2 % (0.0-0.8); Eosinophils # 0.1 10*3/uL (0.0-0.87); Eosinophils % 1.8 % (0.00-10.9); Hematocrit 29.1 VOL% (42.0-52.0); Hemoglobin 9.5 GM/DL (14.0-18.0); Immature Granulocytes % 0.9 %; Immature Granulocytes Absolute 0.04 #; Lymphocytes # 0.7 10*3/uL (1.4-4.0); Lymphocytes % 14.9 % (21.2-54.2); Mean Corpuscular HGB Conc 32.6 GM/DL (32-36); Mean Corpuscular Volume 96.4 FL (87-102); Mean Platelet Volume 12.5 FL (9.6-12.0); Monocytes % 4.5 % (1.7-12.7); Neutrophils % 77.7 % (38.7-73.9); Platelet Count 44 T/CUMM (130-400); Red Blood Count 3.02 MC/CUMM (3.8-5.5); Red Cell Distribution Width 13.4 % (9.3-17.3); White Blood Count 4.4 T/CUMM (4-12)
[2021-11-09 06:26] LABS: Platelet Estimate Decreased
[2021-11-09 06:27] LABS: Hypochromia Slight
[2021-11-09 06:32] LABS: Albumin 2.4 G/DL (3.4-5.0); Bilirubin,Total 0.7 MG/DL (0.20-1.00); Calcium 8.4 MG/DL (8.5-10.1); Osmolality,Calculated 294.5 MOS/KG (273-304); Potassium 3.3 MMOL/L (3.5-5.1); Total Protein 5.8 G/DL (6.4-8.2)
[2021-11-09] MEDS ORDERED: POTASSIUM CHLORIDE 20 MEQ TABLET PO ONE (09:00)
[2021-11-09] MEDS: SERTRALINE 100 MG TABLET PO SCH (10:50)
[2021-11-09] MEDS: ASCORBIC ACID 500 MG TABLET PO SCH ×2 (10:51→21:58)
[2021-11-09] MEDS: amLODIPine 5 MG TABLET PO SCH (10:51)
[2021-11-09] MEDS: OMEGA 3 ACID ETHYL ESTERS 1 GM CAPSULE PO SCH (10:51)
[2021-11-09] MEDS: LOSARTAN 50 MG TABLET PO SCH (10:51)
[2021-11-09] MEDS: MEMANTINE 10 MG TABLET PO SCH ×2 (10:51→21:58)
[2021-11-09] MEDS: predniSONE 20 MG TABLET PO SCH (10:51)
[2021-11-09] MEDS: TAMSULOSIN 0.4 MG CAPSULE PO SCH ×2 (10:52→21:58)
[2021-11-09] MEDS: ENOXAPARIN 40 MG/0.4 ML SYRINGE SUBCUT SCH (10:52)
[2021-11-09] MEDS: FUROSEMIDE 40 MG/4 ML VIAL IV SCH (10:52)
[2021-11-09] MEDS: PANTOPRAZOLE 40 MG TABLET PO SCH ×2 (10:52→21:58)
[2021-11-09] MEDS: ASPIRIN CHEW 81 MG TABLET PO SCH (10:52)
[2021-11-09] MEDS: INSULIN LISPRO 100 UNIT/ML SUBCUT SCH ×4 (10:53→21:55)
[2021-11-09] MEDS: CHOLECALCIFEROL 1,000 UNIT TABLET PO SCH (10:59)
[2021-11-09] MEDS: INSULIN GLARGINE 100 UNIT/ML SUBCUT SCH (21:57)
[2021-11-09] MEDS: EZETIMIBE 10 MG TABLET PO SCH (21:57)
[2021-11-09] MEDS: FINASTERIDE 5 MG TABLET PO SCH (21:58)
[2021-11-09] MEDS: MELATONIN 3 MG TABLET PO SCH (21:58)
[2021-11-09] MEDS: RIVAROXABAN 10 MG TABLET PO SCH (21:58)
[2021-11-10] MEDS: ACETAMINOPHEN 325 MG TABLET PO PRN ×2 (03:26→21:08)
[2021-11-10 06:49] LABS: Eosinophils # 0.1 10*3/uL (0.0-0.87); Eosinophils % 2.5 % (0.00-10.9); Hematocrit 30.2 VOL% (42.0-52.0); Hemoglobin 9.9 GM/DL (14.0-18.0); Immature Granulocytes % 0.5 %; Immature Granulocytes Absolute 0.02 #; Lymphocytes # 0.6 10*3/uL (1.4-4.0); Lymphocytes % 14.3 % (21.2-54.2); Mean Corpuscular HGB Conc 32.8 GM/DL (32-36); Mean Corpuscular Volume 95.3 FL (87-102); Mean Platelet Volume 12.1 FL (9.6-12.0); Monocytes % 4.7 % (1.7-12.7); Red Blood Count 3.17 MC/CUMM (3.8-5.5); Red Cell Distribution Width 13.6 % (9.3-17.3); White Blood Count 4.1 T/CUMM (4-12)
[2021-11-10 06:55] LABS: Platelet Count 45 T/CUMM (130-400)
[2021-11-10 07:14] LABS: Albumin 2.5 G/DL (3.4-5.0); Bilirubin,Total 0.6 MG/DL (0.20-1.00); Calcium 9.1 MG/DL (8.5-10.1); Hypochromia Slight; Microcytosis Slight; Osmolality,Calculated 294.4 MOS/KG (273-304); Platelet Estimate Decreased; Potassium 3.8 MMOL/L (3.5-5.1); Total Protein 5.9 G/DL (6.4-8.2)
[2021-11-10] MEDS: INSULIN LISPRO 100 UNIT/ML SUBCUT SCH ×5 (09:29→21:08)
[2021-11-10] MEDS: OMEGA 3 ACID ETHYL ESTERS 1 GM CAPSULE PO SCH (10:43)
[2021-11-10] MEDS: TAMSULOSIN 0.4 MG CAPSULE PO SCH ×2 (10:43→21:08)
[2021-11-10] MEDS: predniSONE 20 MG TABLET PO SCH (10:44)
[2021-11-10] MEDS: ASCORBIC ACID 500 MG TABLET PO SCH ×2 (10:44→21:08)
[2021-11-10] MEDS: PANTOPRAZOLE 40 MG TABLET PO SCH ×2 (10:44→21:09)
[2021-11-10] MEDS: LOSARTAN 50 MG TABLET PO SCH (10:44)
[2021-11-10] MEDS: SERTRALINE 100 MG TABLET PO SCH (10:44)
[2021-11-10] MEDS: ASPIRIN CHEW 81 MG TABLET PO SCH (10:45)
[2021-11-10] MEDS: FUROSEMIDE 40 MG/4 ML VIAL IV SCH (10:45)
[2021-11-10] MEDS: MEMANTINE 10 MG TABLET PO SCH ×2 (10:46→21:09)
[2021-11-10] MEDS: amLODIPine 5 MG TABLET PO SCH (10:46)
[2021-11-10] MEDS: CHOLECALCIFEROL 1,000 UNIT TABLET PO SCH (10:46)
[2021-11-10] MEDS: INSULIN GLARGINE 100 UNIT/ML SUBCUT SCH (21:07)
[2021-11-10] MEDS: MELATONIN 3 MG TABLET PO SCH (21:09)
[2021-11-10] MEDS: EZETIMIBE 10 MG TABLET PO SCH (21:09)
[2021-11-10] MEDS: FINASTERIDE 5 MG TABLET PO SCH (21:09)
[2021-11-10] MEDS: RIVAROXABAN 10 MG TABLET PO SCH (21:09)
[2021-11-11] MEDS: ASCORBIC ACID 500 MG TABLET PO SCH ×2 (10:27→21:18)
[2021-11-11] MEDS: MEMANTINE 10 MG TABLET PO SCH ×2 (10:27→21:19)
[2021-11-11] MEDS: PANTOPRAZOLE 40 MG TABLET PO SCH ×2 (10:27→21:19)
[2021-11-11] MEDS: CHOLECALCIFEROL 1,000 UNIT TABLET PO SCH (10:27)
[2021-11-11] MEDS: ASPIRIN CHEW 81 MG TABLET PO SCH (10:27)
[2021-11-11] MEDS: SERTRALINE 100 MG TABLET PO SCH (10:28)
[2021-11-11] MEDS: LOSARTAN 50 MG TABLET PO SCH (10:28)
[2021-11-11] MEDS: TAMSULOSIN 0.4 MG CAPSULE PO SCH ×2 (10:28→21:19)
[2021-11-11] MEDS: amLODIPine 5 MG TABLET PO SCH (10:29)
[2021-11-11] MEDS: INSULIN LISPRO 100 UNIT/ML SUBCUT SCH ×7 (10:36→21:18)
[2021-11-11] MEDS: OMEGA 3 ACID ETHYL ESTERS 1 GM CAPSULE PO SCH (12:53)
[2021-11-11] MEDS ORDERED: MAGNESIUM CITRATE 300 ML BOTTLE PO ONE (15:00)
[2021-11-11] MEDS: DOCUSATE SODIUM 100 MG CAPSULE PO SCH ×2 (15:28→21:19)
[2021-11-11] MEDS: DESITIN 4OZ/NYSTATIN 15 GRAM MIXTURE PASTE TOP SCH ×2 (15:30→21:20)
[2021-11-11] MEDS: LACTULOSE 20 GM/30 ML UDCUP PO SCH (21:17)
[2021-11-11] MEDS: INSULIN GLARGINE 100 UNIT/ML SUBCUT SCH (21:18)
[2021-11-11] MEDS: MELATONIN 3 MG TABLET PO SCH (21:18)
[2021-11-11] MEDS: ACETAMINOPHEN 325 MG TABLET PO PRN (21:18)
[2021-11-11] MEDS: FINASTERIDE 5 MG TABLET PO SCH (21:19)
[2021-11-11] MEDS: RIVAROXABAN 10 MG TABLET PO SCH (21:19)
[2021-11-11] MEDS: EZETIMIBE 10 MG TABLET PO SCH (21:19)
[2021-11-12 06:04] LABS: Eosinophils # 0.1 10*3/uL (0.0-0.87); Eosinophils % 2.9 % (0.00-10.9); Immature Granulocytes Absolute 0.03 #; Lymphocytes # 0.6 10*3/uL (1.4-4.0); Lymphocytes % 18.4 % (21.2-54.2); Mean Corpuscular HGB Conc 33.3 GM/DL (32-36); Mean Corpuscular Volume 95.4 FL (87-102); Mean Platelet Volume 11.5 FL (9.6-12.0); Monocytes % 7.1 % (1.7-12.7); Neutrophils % 70.6 % (38.7-73.9); Platelet Count 54 T/CUMM (130-400); Red Blood Count 2.83 MC/CUMM (3.8-5.5); Red Cell Distribution Width 13.7 % (9.3-17.3); White Blood Count 3.1 T/CUMM (4-12)
[2021-11-12 06:13] LABS: Calcium 8.9 MG/DL (8.5-10.1); Osmolality,Calculated 283.8 MOS/KG (273-304); Potassium 4.4 MMOL/L (3.5-5.1)
[2021-11-12 06:28] LABS: Hypochromia 1+
[2021-11-12 06:29] LABS: Microcytosis Slight; Ovalocytes Slight; Platelet Estimate Decreased
[2021-11-12] MEDS ORDERED: LINACLOTIDE 145 MCG CAPSULE PO SCH (07:30)
[2021-11-12] MEDS: DESITIN 4OZ/NYSTATIN 15 GRAM MIXTURE PASTE TOP SCH ×2 (10:27→20:34)
[2021-11-12] MEDS: ASPIRIN CHEW 81 MG TABLET PO SCH (10:27)
[2021-11-12] MEDS: INSULIN LISPRO 100 UNIT/ML SUBCUT SCH ×7 (10:27→20:30)
[2021-11-12] MEDS: TAMSULOSIN 0.4 MG CAPSULE PO SCH ×2 (10:28→20:32)
[2021-11-12] MEDS: OMEGA 3 ACID ETHYL ESTERS 1 GM CAPSULE PO SCH (10:28)
[2021-11-12] MEDS: MEMANTINE 10 MG TABLET PO SCH ×2 (10:28→20:32)
[2021-11-12] MEDS: LACTULOSE 20 GM/30 ML UDCUP PO SCH (10:28)
[2021-11-12] MEDS: LOSARTAN 50 MG TABLET PO SCH (10:28)
[2021-11-12] MEDS: DOCUSATE SODIUM 100 MG CAPSULE PO SCH ×2 (10:28→20:32)
[2021-11-12] MEDS: CHOLECALCIFEROL 1,000 UNIT TABLET PO SCH (10:29)
[2021-11-12] MEDS: PANTOPRAZOLE 40 MG TABLET PO SCH ×2 (10:29→20:32)
[2021-11-12] MEDS: SERTRALINE 100 MG TABLET PO SCH (10:29)
[2021-11-12] MEDS: amLODIPine 5 MG TABLET PO SCH (10:29)
[2021-11-12] MEDS: ASCORBIC ACID 500 MG TABLET PO SCH ×2 (10:29→20:32)
[2021-11-12] MEDS: INSULIN GLARGINE 100 UNIT/ML SUBCUT SCH (20:31)
[2021-11-12] MEDS: MELATONIN 3 MG TABLET PO SCH (20:32)
[2021-11-12] MEDS: FINASTERIDE 5 MG TABLET PO SCH (20:32)
[2021-11-12] MEDS: EZETIMIBE 10 MG TABLET PO SCH (20:32)
[2021-11-12] MEDS: ACETAMINOPHEN 325 MG TABLET PO PRN (20:33)
[2021-11-12] MEDS: HEPARIN 5,000 UNIT/1 ML VIAL SUBCUT SCH (20:33)
[2021-11-13 05:48] LABS: Basophils % 0.4 % (0.0-0.8); Eosinophils # 0.1 10*3/uL (0.0-0.87); Eosinophils % 2.5 % (0.00-10.9); Hematocrit 26.9 VOL% (42.0-52.0); Hemoglobin 8.8 GM/DL (14.0-18.0); Immature Granulocytes % 1.1 %; Immature Granulocytes Absolute 0.03 #; Lymphocytes # 0.6 10*3/uL (1.4-4.0); Lymphocytes % 20.7 % (21.2-54.2); Mean Corpuscular HGB Conc 32.7 GM/DL (32-36); Mean Corpuscular Volume 98.2 FL (87-102); Mean Platelet Volume 11.3 FL (9.6-12.0); Monocytes % 7.9 % (1.7-12.7); Neutrophils % 67.4 % (38.7-73.9); Platelet Count 68 T/CUMM (130-400); Red Blood Count 2.74 MC/CUMM (3.8-5.5); Red Cell Distribution Width 14.1 % (9.3-17.3); White Blood Count 2.8 T/CUMM (4-12)
[2021-11-13 06:15] LABS: Calcium 8.9 MG/DL (8.5-10.1); Osmolality,Calculated 289.8 MOS/KG (273-304); Potassium 4.4 MMOL/L (3.5-5.1)
[2021-11-13] MEDS: MEMANTINE 10 MG TABLET PO SCH ×2 (11:29→21:55)
[2021-11-13] MEDS: ASPIRIN CHEW 81 MG TABLET PO SCH (11:29)
[2021-11-13] MEDS: amLODIPine 5 MG TABLET PO SCH (11:29)
[2021-11-13] MEDS: SERTRALINE 100 MG TABLET PO SCH (11:29)
[2021-11-13] MEDS: CHOLECALCIFEROL 1,000 UNIT TABLET PO SCH (11:29)
[2021-11-13] MEDS: HEPARIN 5,000 UNIT/1 ML VIAL SUBCUT SCH ×2 (11:30→21:53)
[2021-11-13] MEDS: TAMSULOSIN 0.4 MG CAPSULE PO SCH ×2 (11:30→21:55)
[2021-11-13] MEDS: PANTOPRAZOLE 40 MG TABLET PO SCH ×2 (11:30→21:54)
[2021-11-13] MEDS: LOSARTAN 50 MG TABLET PO SCH (11:30)
[2021-11-13] MEDS: ASCORBIC ACID 500 MG TABLET PO SCH ×2 (11:30→21:54)
[2021-11-13] MEDS: OMEGA 3 ACID ETHYL ESTERS 1 GM CAPSULE PO SCH (11:30)
[2021-11-13] MEDS: DOCUSATE SODIUM 100 MG CAPSULE PO SCH ×2 (11:30→21:54)
[2021-11-13] MEDS: INSULIN LISPRO 100 UNIT/ML SUBCUT SCH ×7 (11:31→21:54)
[2021-11-13] MEDS: DESITIN 4OZ/NYSTATIN 15 GRAM MIXTURE PASTE TOP SCH ×2 (13:42→21:55)
[2021-11-13] MEDS: ATORVASTATIN 80 MG TABLET PO SCH (17:09)
[2021-11-13] MEDS: INSULIN GLARGINE 100 UNIT/ML SUBCUT SCH ×2 (17:12→21:53)
[2021-11-13] MEDS: MELATONIN 3 MG TABLET PO SCH (21:54)
[2021-11-13] MEDS: EZETIMIBE 10 MG TABLET PO SCH (21:54)
[2021-11-13] MEDS: FINASTERIDE 5 MG TABLET PO SCH (21:54)
[2021-11-14 05:29] LABS: Basophils % 0.4 % (0.0-0.8); Eosinophils # 0.1 10*3/uL (0.0-0.87); Eosinophils % 4.2 % (0.00-10.9); Hematocrit 25.3 VOL% (42.0-52.0); Hemoglobin 8.2 GM/DL (14.0-18.0); Immature Granulocytes % 1.7 %; Immature Granulocytes Absolute 0.04 #; Lymphocytes # 0.7 10*3/uL (1.4-4.0); Lymphocytes % 29.6 % (21.2-54.2); Mean Corpuscular HGB Conc 32.4 GM/DL (32-36); Mean Corpuscular Volume 98.4 FL (87-102); Mean Platelet Volume 10.8 FL (9.6-12.0); Monocytes % 8.8 % (1.7-12.7); Neutrophils % 55.3 % (38.7-73.9); Platelet Count 83 T/CUMM (130-400); Red Blood Count 2.57 MC/CUMM (3.8-5.5); Red Cell Distribution Width 14.1 % (9.3-17.3); White Blood Count 2.4 T/CUMM (4-12)
[2021-11-14 05:53] LABS: Calcium 8.6 MG/DL (8.5-10.1); Osmolality,Calculated 290.1 MOS/KG (273-304); Potassium 4.2 MMOL/L (3.5-5.1)
[2021-11-14 05:56] LABS: Bilirubin,Direct 0.2 MG/DL (0.0-0.20); Bilirubin,Indirect 0.3 MG/DL (0.0-1.0); Bilirubin,Total 0.5 MG/DL (0.20-1.00); Total Protein 5.4 G/DL (6.4-8.2)
[2021-11-14 06:09] LABS: Anisocytosis 1+; Band Neutrophils 6 % (0-10); Burr Cells Few; Eosinophils 6 % (0-10); Lymphocytes 23 % (20-55); Nucleated Red Blood Cells 1 (0-5); Platelet Estimate Decreased; Segmented Neutrophils 57 % (50-85); Spherocytes Few; Total Cells Counted 100
[2021-11-14] MEDS: ATORVASTATIN 80 MG TABLET PO SCH (10:59)
[2021-11-14] MEDS: ASPIRIN CHEW 81 MG TABLET PO SCH (10:59)
[2021-11-14] MEDS: CHOLECALCIFEROL 1,000 UNIT TABLET PO SCH (10:59)
[2021-11-14] MEDS: HEPARIN 5,000 UNIT/1 ML VIAL SUBCUT SCH (10:59)
[2021-11-14] MEDS: SERTRALINE 100 MG TABLET PO SCH (11:00)
[2021-11-14] MEDS: LOSARTAN 50 MG TABLET PO SCH (11:00)
[2021-11-14] MEDS: ASCORBIC ACID 500 MG TABLET PO SCH (11:00)
[2021-11-14] MEDS: OMEGA 3 ACID ETHYL ESTERS 1 GM CAPSULE PO SCH (11:00)
[2021-11-14] MEDS: DOCUSATE SODIUM 100 MG CAPSULE PO SCH (11:00)
[2021-11-14] MEDS: PANTOPRAZOLE 40 MG TABLET PO SCH (11:00)
[2021-11-14] MEDS: MEMANTINE 10 MG TABLET PO SCH (11:00)
[2021-11-14] MEDS: INSULIN GLARGINE 100 UNIT/ML SUBCUT SCH (11:01)
[2021-11-14] MEDS: DESITIN 4OZ/NYSTATIN 15 GRAM MIXTURE PASTE TOP SCH (11:01)
[2021-11-14] MEDS: amLODIPine 5 MG TABLET PO SCH (11:08)
[2021-11-14] MEDS: TAMSULOSIN 0.4 MG CAPSULE PO SCH (11:08)
[2021-11-14] MEDS: INSULIN LISPRO 100 UNIT/ML SUBCUT SCH ×4 (11:09→14:10)
[2021-11-14 11:53] VITALS: BP 139/44
== END 2021-11-14 14:24 | DRG 207 ==
LOC: N.ED 16:29 → SUATTDRO 18:19 → N.EDINP 18:19 → N.CC 21:39 → N.5E 11-02 23:10
PROVIDERS: ADMIT Internal Medicine; ATTEND Internal Medicine